=== PATIENT | female | born 1990 | race Caucasian/White ===

== ENCOUNTER 2016-07-29 18:32 | Emergency (ER) | payer OTHER ==
[2016-07-29] MEDS ORDERED: SODIUM CHLORIDE 0.9% 1,000 ML IV STA (19:05)
[2016-07-29] MEDS ORDERED: ACETAMINOPHEN IV (For NPO) 1,000 MG in SALINE 100 100ML.BAG IVPB STA (19:05)
--- NOTE | 2016-07-29 19:10 | ED ---
General Adult HPI - General Source: patient, RN notes reviewed Mode of arrival: ambulatory Limitations: no limitations <Eric James - Last Filed: 07/29/16 20:00> <Rishabh Mascorro - Last Filed: 07/29/16 21:26> - General Chief complaint: Recheck/Abnormal Lab/Rx Stated complaint: HYPERTENSION, JAYESH, PAIN RADIATING TO UPPER BACK Time Seen by Provider: 07/29/16 18:57 - History of Present Illness Initial comments: Patient 26-year-old female who presents emergency room today with a chief complaint feeling lightheaded dizzy. Does admit that she was at work earlier today felt like her heart was racing and did check her blood pressure. She states she 180s 106. States her heart rate was 120 bpm. States there is no history of hypertension. States she felt very hot and flushed earlier today. Patient does admit that she is currently on antibiotic of Bactrim covering for a pharyngitis and urinary tract infection. Patient denies any other complaints or symptoms at this time. Patient denies any recent fever, chills, shortness of breath, chest pain, back pain, abdominal pain, nausea or vomiting, numbness or tingling, dysuria or hematuria, constipation or diarrhea, headaches or visual changes, or any other complaints. (Eric James) - Related Data Home Medications Medication Instructions Recorded Confirmed Omeprazole 20 mg PO DAILY 07/29/16 07/29/16 Phentermine HCl [Adipex-P] 37.5 mg PO QAM 07/29/16 07/29/16 Sulfamethox-Tmp 800-160Mg [Bactrim 1 tab PO Q12HR 07/29/16 07/29/16 DS 800-160 mg] metFORMIN HCL [Glucophage] 850 mg PO DAILY 07/29/16 07/29/16 Previous Rx's Medication Instructions Recorded Azithromycin [Zithromax Z-pack] 250 mg PO DIRECTED #6 tab 07/29/16 Allergies Allergy/AdvReac Type Severity Reaction Status Date / Time Penicillins Allergy Rash/Hives Verified 07/29/16 19:13 Review of Systems ROS Other: All systems not noted in ROS Statement are negative. <Eric James - Last Filed: 07/29/16 20:00> ROS Other: All systems not noted in ROS Statement are negative. <Rishabh Mascorro - Last Filed: 07/29/16 21:26> ROS Statement: Those systems with pertinent positive or pertinent negative responses have been documented in the HPI. Past Medical History Past Medical History: No Reported History Additional Past Medical History / Comment(s): pcos History of Any Multi-Drug Resistant Organisms: None Reported Past Surgical History: Adenoidectomy Additional Past Surgical History / Comment(s): D&C Past Psychological History: No Psychological Hx Reported Smoking Status: Current every day smoker Past Alcohol Use History: None Reported Past Drug Use History: None Reported <Eric James - Last Filed: 07/29/16 20:00> General Exam Limitations: no limitations <Eric James - Last Filed: 07/29/16 20:00> <Rishabh Mascorro - Last Filed: 07/29/16 21:26> - General Exam Comments Initial Comments: General: The patient is awake and alert, in no distress, and does not appear acutely ill. Eye: Pupils are equal, round and reactive to light, extra-ocular movements are intact. No nystagmus. There is normal conjunctiva bilaterally. No signs of icterus. Ears, nose, mouth and throat: There are moist mucous membranes and no oral lesions. Neck: The neck is supple, there is no tenderness or JVD. No meningismal signs. Cardiovascular: There is a regular rate and rhythm. No murmur, rub or gallop is appreciated. Respiratory: Lungs are clear to auscultation, respirations are non-labored, breath sounds are equal. No wheezes, stridor, rales, or rhonchi. Gastrointestinal: Soft, non-distended, non-tender abdomen without masses or organomegaly noted. There is no rebound or guarding present. No CVA tenderness. Bowel sounds are unremarkable. Musculoskeletal: Normal ROM, no tenderness. Strength 5/5. Sensation intact. Pulses equal bilaterally 2+. Neurological: A&O x 3. CN II-XII intact, There are no obvious motor or sensory deficits. Coordination appears grossly intact. Speech is normal. Skin: Skin is warm and dry and no rashes or lesions are noted. Psychiatric: Cooperative, appropriate mood & affect, normal judgment. (Eric James) Medical Decision Making <Eric James - Last Filed: 07/29/16 20:00> - Lab Data Result diagrams: 07/29/16 19:48 07/29/16 19:48 <Rishabh Mascorro - Last Filed: 07/29/16 21:26> - Medical Decision Making Medical decision-making. Patient's white count 12 hemoglobin 13 hematocrit of 40, potassium 4.4, BUN 9 creatinine 1.0 with a BUN is 60. Glucose 77. Urine shows 4 whites. Negative negative. The patient's been on Bactrim for 8 days for urinary tract infection. Last week she was tested and she reports that she was negative rapid strep test is negative for strep though she did have a sore throat that time. Today she has a mild headache slight rash to her cheeks and arms. Her temp was up today 100. She did a blood pressure work was elevated also her heart rate was elevated. When she arrived here heart rate was 107 soon thereafter down to 92. Blood pressure initially 170/87 and then repeated at 147/82. Pulse ox was 100 initially and then 98 on room air afterwards. On physical examination patient throat was mildly red she had mild headache but no evidence of any meningeal irritation or meningismus. Mildly reddened skin on her face and arms. Lungs clear to auscultation heart no murmur. Patient had a chest x-ray. Reviewed by radiologist his impression was normal chest. As read by Dr. Pires Because of the patient's symptoms of elevated heart rate elevated respiratory rate when she arrived and fever. She had a CT with IV contrast angiogram to rule out PE. Radiologist reviewed the study and his impression was no evidence of pulmonary embolism on this exam. As read by Dr. Dave Discussed with the patient various scenarios otherwise she has a fever, why her heart rate was up blood pressure was up the way she fell. The plant this time is to place patient on a Zithromax and because she persists in having an upper respiratory type complaints with fever. She had a sore throat last week with a slight rash on her face and arms today. Patient advised to take tomorrow off increase her fluids use Tylenol or ibuprofen for pain and/or fever and follow- up with family physician. Dr. Mascorro (Rishabh Mascorro) - Lab Data Lab Results 07/29/16 07/29/16 07/29/16 Range/Units 19:48 19:48 19:48 WBC 12.1 H (3.8-10.6) k/uL RBC 4.48 (3.80-5.40) m/uL Hgb 13.1 (11.4-16.0) gm/dL Hct 40.2 (34.0-46.0) % MCV 89.8 (80.0-100.0) fL MCH 29.2 (25.0-35.0) pg MCHC 32.5 (31.0-37.0) g/dL RDW 14.5 (11.5-15.5) % Plt Count 378 (150-450) k/uL Neutrophils % 62 % Lymphocytes % 31 % Monocytes % 4 % Eosinophils % 1 % Basophils % 1 % Neutrophils # 7.5 (1.3-7.7) k/uL Lymphocytes # 3.7 (1.0-4.8) k/uL Monocytes # 0.5 (0-1.0) k/uL Eosinophils # 0.2 (0-0.7) k/uL Basophils # 0.1 (0-0.2) k/uL Sodium 141 (137-145) mmol/L Potassium 4.4 (3.5-5.1) mmol/L Chloride 103 (98-107) mmol/L Carbon Dioxide 23 (22-30) mmol/L Anion Gap 15 mmol/L BUN 9 (7-17) mg/dL Creatinine 1.00 (0.52-1.04) mg/dL Est GFR (MDRD) Af Amer >60 (>60 ml/min/1.73 sqM) Est GFR (MDRD) Non-Af >60 (>60 ml/min/1.73 sqM) Glucose 77 (74-99) mg/dL Calcium 9.4 (8.4-10.2) mg/dL Total Bilirubin 0.4 (0.2-1.3) mg/dL AST 21 (14-36) U/L ALT 38 (9-52) U/L Alkaline Phosphatase 65 (38-126) U/L Total Protein 7.4 (6.3-8.2) g/dL Albumin 4.1 (3.5-5.0) g/dL Urine Color Urine Appearance (Clear) Urine pH (5.0-8.0) Ur Specific [place] (1.001-1.035) Urine Protein (Negative) Urine Glucose (UA) (Negative) Urine Ketones (Negative) Urine Blood (Negative) Urine Nitrate (Negative) Urine Bilirubin (Negative) Urine Urobilinogen (<2.0) mg/dL Ur Leukocyte Esterase (Negative) Urine RBC (0-5) /hpf Urine WBC (0-5) /hpf Ur Squamous Epith Cells (0-4) /hpf Urine Bacteria (None) /hpf Urine Mucus (None) /hpf Urine HCG, Qual (Not Detectd) Influenza Type A RNA Not Detected (Not Detectd) Influenza Type B (PCR) Not Detected (Not Detectd) 07/29/16 07/29/16 Range/Units 19:48 19:48 WBC (3.8-10.6) k/uL RBC (3.80-5.40) m/uL Hgb (11.4-16.0) gm/dL Hct (34.0-46.0) % MCV (80.0-100.0) fL MCH (25.0-35.0) pg MCHC (31.0-37.0) g/dL RDW (11.5-15.5) % Plt Count (150-450) k/uL Neutrophils % % Lymphocytes % % Monocytes % % Eosinophils % % Basophils % % Neutrophils # (1.3-7.7) k/uL Lymphocytes # (1.0-4.8) k/uL Monocytes # (0-1.0) k/uL Eosinophils # (0-0.7) k/uL Basophils # (0-0.2) k/uL Sodium (137-145) mmol/L Potassium (3.5-5.1) mmol/L Chloride (98-107) mmol/L Carbon Dioxide (22-30) mmol/L Anion Gap mmol/L BUN (7-17) mg/dL Creatinine (0.52-1.04) mg/dL Est GFR (MDRD) Af Amer (>60 ml/min/1.73 sqM) Est GFR (MDRD) Non-Af (>60 ml/min/1.73 sqM) Glucose (74-99) mg/dL Calcium (8.4-10.2) mg/dL Total Bilirubin (0.2-1.3) mg/dL AST (14-36) U/L ALT (9-52) U/L Alkaline Phosphatase (38-126) U/L Total Protein (6.3-8.2) g/dL Albumin (3.5-5.0) g/dL Urine Color Yellow Urine Appearance Cloudy H (Clear) Urine pH 6.0 (5.0-8.0) Ur Specific [place] 1.022 (1.001-1.035) Urine Protein Trace H (Negative) Urine Glucose (UA) Negative (Negative) Urine Ketones Negative (Negative) Urine Blood Negative (Negative) Urine Nitrate Negative (Negative) Urine Bilirubin Negative (Negative) Urine Urobilinogen <2.0 (<2.0) mg/dL Ur Leukocyte Esterase Small H (Negative) Urine RBC 1 (0-5) /hpf Urine WBC 4 (0-5) /hpf Ur Squamous Epith Cells 8 H (0-4) /hpf Urine Bacteria Rare H (None) /hpf Urine Mucus Rare H (None) /hpf Urine HCG, Qual Not Detected (Not Detectd) Influenza Type A RNA (Not Detectd) Influenza Type B (PCR) (Not Detectd) Disposition <Eric James - Last Filed: 07/29/16 20:00> Time of Disposition: 21:26 <Rishabh Mascorro - Last Filed: 07/29/16 21:26> Clinical Impression: Upper respiratory tract infection Disposition: HOME SELF-CARE Condition: Stable Instructions: Upper Respiratory Infection (ED) Additional Instructions: Increase fluids use Tylenol for fever. Start incomplete a azithromycin. Follow -up with family physician. Kitchen blood pressure rechecked several times this week. Tomorrow Prescriptions: Azithromycin [Zithromax Z-pack] 250 mg PO DIRECTED #6 tab
--- NOTE | 2016-07-29 20:01 | XR ---
EXAMINATION TYPE: XR chest 2V DATE OF EXAM ORDERED: 07/29/2016 7:56 PM HISTORY: cough. 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 FINDINGS: The lungs are clear. Pleural spaces are clear. Heart size is normal. IMPRESSION: NORMAL CHEST.
[2016-07-29 20:03] LABS: Basophils # (A) 0.1 k/uL (0-0.2); Basophils % (A) 1 %; CHCM 32.5; Eosinophils # (A) 0.2 k/uL (0-0.7); Eosinophils % (A) 1 %; HCT 40.2 % (34.0-46.0); HDW 2.75; HGB 13.1 gm/dL (11.4-16.0); Luc # (Auto) 0.15; Luc % (Auto) 1; Lymphocytes # (A) 3.7 k/uL (1.0-4.8); Lymphocytes % (A) 31 %; MCH 29.2 pg (25.0-35.0); MCHC 32.5 g/dL (31.0-37.0); MCV 89.8 fL (80.0-100.0); Mean Platelet Volume 7.2; Monocytes # (A) 0.5 k/uL (0-1.0); Monocytes % (A) 4 %; Neutrophils # (A) 7.5 k/uL (1.3-7.7); Neutrophils % (A) 62 %; RBC 4.48 m/uL (3.80-5.40); RDW 14.5 % (11.5-15.5); WBC 12.1 k/uL (3.8-10.6); WBC (Perox) 12.37
[2016-07-29 20:05] LABS: Appearance,Urine Cloudy (Clear); Bacteria,Urine Rare /hpf; Bilirubin,Urine Negative (Negative); Glucose,Urine (UA) Negative (Negative); Ketones,Urine Negative (Negative); Leukocyte Esterase,Urine Small (Negative); Mucus,Urine Rare /hpf; Nitrite,Urine Negative (Negative); Particle Count 3066; Protein,Urine Trace (Negative); RBC,Urine 1 /hpf (0-5); Specific Gravity,Urine 1.022 (1.001-1.035); Squamous Epithelial Cell,Urine 8 /hpf (0-4); UA Billing (MACRO vs. MICRO) MICRO; Urobilinogen,Urine <2.0 mg/dL (<2.0); WBC,Urine 4 /hpf (0-5)
[2016-07-29] MEDS ORDERED: RX INFO: IV CONTRAST WAS GIVEN 1 EACH MISC MISCELLANE PRN (20:16)
[2016-07-29 20:22] LABS: ALT 38 U/L (9-52); AST 21 U/L (14-36); Alkaline Phosphatase 65 U/L (38-126); Anion Gap 15 mmol/L; Blood Urea Nitrogen 9 mg/dL (7-17); Calcium 9.4 mg/dL (8.4-10.2); Carbon Dioxide 23 mmol/L (22-30); Chloride 103 mmol/L (98-107); Glucose 77 mg/dL (74-99); Non-African American GFR(MDRD) >60 (>60 ml/min/1.73 sqM); Potassium 4.4 mmol/L (3.5-5.1); Sodium 141 mmol/L (137-145); Total Bilirubin 0.4 mg/dL (0.2-1.3); Total Protein 7.4 g/dL (6.3-8.2)
--- NOTE | 2016-07-29 21:02 | CT ---
EXAMINATION TYPE: CT angio chest DATE OF EXAM: 07/29/2016 8:53 PM COMPARISON: NONE HISTORY: Tachycardia and hypertension with difficulty breathing. CT DLP: 506.60 mGycm Automated exposure control for dose reduction was used. CONTRAST: CTA scan of the thorax is performed with IV Contrast, patient injected with 65 mL of Omnipaque 350, p ulmonary embolism protocol. . FINDINGS: The lungs are clear. There is no significant axillary, internal mammary, mediastinal or hilar adenopathy. There is no pleu ral or pericardial fluid. There is no evidence of pulmonary embolus. The aorta is normal in caliber without evidence of dissect ion. Visualized portions of the upper abdomen are unremarkable.. IMPRESSION: THIS EXAMINATION IS NEGATIVE FOR PULMONARY EMBOLUS.
[2016-07-29] MEDS ORDERED: AZITHROMYCIN 250 MG TAB PO STA (21:24)
[2016-07-29 21:41] VITALS: BP 149/70; PULSE 71; RESP 16; TEMP 98.5
== END 2016-07-29 21:40 | disposition home or self-care (01) ==
LOC: EC 18:32
DX: J06.9 Acute upper respiratory infection, unspecified (principal); R51 Headache; R21 Rash and other nonspecific skin eruption; I10 Essential (primary) hypertension; Z79.899 Other long term (current) drug therapy; Z79.84 Long term (current) use of oral hypoglycemic drugs; F17.200 Nicotine dependence, unspecified, uncomplicated; Z88.0 Allergy status to penicillin
CPT/HCPCS: 99284; 36415; 93005; 80053; 85025; 81001; 81025; 87502; 71020; 71275; 96374; 96361; Q9967; J0131

== ENCOUNTER → 2018-06-23 | Outpatient (CLI) | payer OTHER ==
--- NOTE | 2018-06-23 14:40 | FL ---
EXAMINATION TYPE: FL hysterosalpingography DATE OF EXAM: 06/23/2018 HISTORY: Infertility. Informed consent was obtained and all the patient's questions were answered. Preliminary film of the pelvis reveals no distinct abnormality. A speculum was introduced and the external cervical os was l ocalize. The external cervical os was cleansed and a Betadine solution on 3 occasions. Hysterosalpi ngography catheter was introduced into the uterus and balloon insufflation device deployed. Approxim ately 12 cc of nonionic contrast was injected in a retrograde manner. The uterus has a normal size shape and appearance. No persistent uterine filling defects are seen. Both fallopian tubes fill with contrast normally. There is spill of contrast into the peritoneal cav ity bilaterally left greater than right. IMPRESSION: Normal hysterosalpingogram with bilateral spill of contrast into the peritoneal cavity.
== END | disposition home or self-care (01) ==
LOC: RADFLWHC 13:26
PROVIDERS: ATTEND Obstetrics & Gynecology
DX: E28.2 Polycystic ovarian syndrome (principal)
CPT/HCPCS: 58340; 74740; Q9967

== ENCOUNTER → 2018-07-22 | Outpatient (CLI) | payer OTHER ==
[2018-07-22 15:03] LABS: HCT 44.8 % (34.0-46.0); HGB 14.3 gm/dL (11.4-16.0); MCH 32.1 pg (25.0-35.0); MCHC 31.9 g/dL (31.0-37.0); MCV 100.8 fL (80.0-100.0); Platelet Count 315 k/uL (150-450); RBC 4.44 m/uL (3.80-5.40); RDW 12.7 % (11.5-15.5); WBC 8.8 k/uL (3.8-10.6)
[2018-07-22 16:20] LABS: Erythrocyte Sedimentation Rate 7 mm/hr (0-20)
[2018-07-22 19:48] LABS: C Reactive Protein 0.5 mg/dL (0.0-0.8)
[2018-07-22 19:49] LABS: Albumin 4.6 g/dL (3.80-4.90); Albumin/Globulin Ratio 2.3 (1.20-2.10); Anion Gap 8.4 mmol/L (4.00-12.00); Calcium 9.3 mg/dL (8.7-10.3); Carbon Dioxide 29.6 mmol/L (21.6-31.8); Potassium 4.2 mmol/L (3.5-5.5); Total Bilirubin 0.2 mg/dL (0.3-1.2); Total Protein 6.6 g/dL (6.2-8.2)
== END | disposition home or self-care (01) ==
LOC: LABWHC1 14:36
PROVIDERS: ATTEND Orthopaedic Surgery
DX: M86.9 Osteomyelitis, unspecified (principal)
CPT/HCPCS: 36415; 80053; 85027; 85652; 86140

== ENCOUNTER 2018-07-25 05:32 | Emergency (ER) | payer OTHER ==
[2018-07-25 05:38] VITALS: RESP 18
[2018-07-25] MEDS ORDERED: KETOROLAC 30 MG/ML 1 ML VIAL IVP STA (06:00)
--- NOTE | 2018-07-25 06:00 | ED ---
General Adult HPI - General Source: patient Mode of arrival: ambulatory Limitations: no limitations <Dom Munguia - Last Filed: 07/25/18 05:59> <Gary Fisher - Last Filed: 07/25/18 08:31> - General Chief complaint: Abdominal Pain Stated complaint: constipation,abd pain - Related Data Home Medications Medication Instructions Recorded Confirmed metFORMIN HCL [Glucophage] 850 mg PO DAILY 07/29/16 07/25/18 Allergies Allergy/AdvReac Type Severity Reaction Status Date / Time Penicillins Allergy Rash/Hives Verified 07/25/18 06:53 Review of Systems ROS Other: All systems not noted in ROS Statement are negative. <Dom Munguia - Last Filed: 07/25/18 05:59> ROS Other: All systems not noted in ROS Statement are negative. <Gary Fisher - Last Filed: 07/25/18 08:31> ROS Statement: Those systems with pertinent positive or pertinent negative responses have been documented in the HPI. Past Medical History Past Medical History: No Reported History Additional Past Medical History / Comment(s): pcos History of Any Multi-Drug Resistant Organisms: None Reported Past Surgical History: Adenoidectomy Additional Past Surgical History / Comment(s): D&C Past Psychological History: No Psychological Hx Reported Smoking Status: Former smoker Past Alcohol Use History: None Reported Past Drug Use History: None Reported <Dom Munguia - Last Filed: 07/25/18 05:59> General Exam Limitations: no limitations <Dom Munguia - Last Filed: 07/25/18 05:59> Vital Signs 07/25/18 07/25/18 05:35 08:18 Temperature 98.1 F 97.9 F Pulse Rate 88 71 Respiratory 18 18 Rate Blood Pressure 163/99 150/99 O2 Sat by Pulse 99 98 Oximetry Medical Decision Making <Dom Munguia - Last Filed: 07/25/18 05:59> <Gary Fisher - Last Filed: 07/25/18 08:31> - Medical Decision Making Dictation was produced using [employer] dictation software. please excuse any grammatical, word or spelling errors. Chief Complaint: 28-year-old female past medical history of PCOS presents with pelvic pain History of Present Illness: 28-year-old female. She hasn't had a bowel movement in 2 days. Patient states that she is having constipation. She states that her constipation so bad that she is beginning to have pelvic symptoms. She tried taking oral laxatives with no help. Denies any constitutional symptoms. She states that she does have abdominal tenderness to the left upper and left lower quadrant. There is any nausea or vomiting. She states that she does have a bowel movement but it hurts. Denies any rectal bleeding. The ROS documented in this emergency department record has been reviewed and confirmed by me. Those systems with pertinent positive or negative responses have been documented in the HPI. All other systems are other negative and/or noncontributory. PHYSICAL EXAM: General Impression: Alert and oriented x3, not in acute distress HEENT: Normocephalic atraumatic, extra-ocular movements intact, pupils equal and reactive to light bilaterally, mucous membranes moist. Cardiovascular: Heart regular rate and rhythm, S1&S2 audible, no murmurs, rubs or gallops Chest: Lungs clear to auscultation bilaterally, no rhonchi, no wheeze, no rales Abdomen: Abdominal tenderness to the left upper and left lower quadrant Musculoskeletal: Pulses present and equal in all extremities, no peripheral edema Motor: Power 5/5 bilaterally, no focal deficits noted Neurological: CN II-XII grossly intact, no focal motor or sensory deficits noted Skin: Intact with no visualized rashes Psych: Normal affect and mood ED course: 28-year-old female presents with abdominal pain, rectal pain and constipation. Signs upon arrival are within acceptable limits. (Dom Munguia) Patient had an enema and had a large bowel movement. Patient states she felt considerably better. I will back into reevaluate her examined her abdomen she was nontender. Patient be discharged home. (Gary Fisher) - Lab Data Lab Results 07/25/18 Range/Units 05:50 Urine HCG, Qual Not Detected (Not Detectd) Disposition <Dom Munguia - Last Filed: 07/25/18 05:59> Is patient prescribed a controlled substance at d/c from ED?: No Time of Disposition: 08:31 <Gary Fisher - Last Filed: 07/25/18 08:31> Clinical Impression: Constipation Disposition: HOME SELF-CARE Condition: Good Instructions: High Fiber Diet (ED), Constipation (ED) Referrals: Selma Curtis MD [Primary Care Provider] - 1-2 days
--- NOTE | 2018-07-25 06:22 | XR ---
EXAMINATION TYPE: XR abdomen 1V DATE OF EXAM: 07/25/2018 COMPARISON: 05/04/2013 HISTORY: Constipation TECHNIQUE: 2 views upright. FINDINGS: There is no sign of intestinal obstruction or pneumoperitoneum. Fecal pattern is normal. Anabel ng bases are clear. There are no pathologic calcifications. IMPRESSION: Nonacute abdomen. No change.
[2018-07-25] MEDS ORDERED: MORPHINE SULFATE 2 MG/ML SYRINGE IVP PRN (06:50)
[2018-07-25] MEDS ORDERED: NA PHOS,M-B/NA PHOS,DI-BA 133 ML ENEMA RECTAL STA (07:16)
[2018-07-25 08:20] VITALS: BP 150/99; PULSE 71; TEMP 97.9
== END 2018-07-25 08:35 | disposition home or self-care (01) ==
LOC: EC 05:32
DX: K59.00 Constipation, unspecified (principal); Z87.891 Personal history of nicotine dependence; Z87.42 Personal history of other diseases of the female genital tract; Z79.84 Long term (current) use of oral hypoglycemic drugs; Z88.0 Allergy status to penicillin
CPT/HCPCS: 81025; 74018; 99284; 96374; 96375; J1885; J2270

== ENCOUNTER → 2020-09-10 | Outpatient (CLI) | payer OTHER ==
--- NOTE | 2020-09-10 16:06 | MR ---
MRI CERVICAL SPINE: CLINICAL HISTORY: M 54.12, M 54.5 TECHNIQUE: Multiplanar, multisequence imaging of the cervical spine and thoracic spine is performed w ithout IV contrast, patient refused IV contrast. COMPARISON: None FINDINGS: Sagittal images of the cervical spine show the craniocervical junction to appear within nor mal limits. The cervical and upper thoracic spinal cord is normal in course, caliber, and signal. V ertebral alignment is anatomic. The vertebral body and intravertebral disk heights are remarkable fo r some loss of disc signal C4-5 and C5-6, there is no significant spinal stenosis, no foraminal encro achment. The bone marrow signal intensity is within normal limits. Small posterior disc bulge C7-T1 is eccentric towards the right causing minimal anterolateral mass ef fect on the thecal sac, C6-7 shows a minimal central posterior disc bulge. C5-6 shows a central posterior disc protrusion causing anterior mass effect on the thecal sac, C4-5 s hows a minimal posterior disc bulge causing slight anterior mass effect on the thecal sac. IMPRESSION: Mild degenerative disc disease. Thoracic spine MRI There is a spinal curvature present. There is no significant spinal stenosis. There is multilevel mil d facet arthropathy especially at the lower thoracic spine. No evident foraminal encroachment. Minima l multilevel disc bulges are present, T6-7 shows slight anterior mass effect on the thecal sac. T4-5 also shows slight anterior mass effect on the thecal sac due to posterior disc bulge. T8-9 also shows a bilobed posterior disc bulge causes slight anterior mass effect on the thecal sac. T11-12 shows a right paracentral disc herniation causing anterolateral mass effect on the thecal sac. IMPRESSION: Degenerative disc disease, disc herniation is lateral at T11-12 to the right midline.
== END ==
LOC: RADMRIMAIN 09-07 11:34
PROVIDERS: ATTEND Nurse Practitioner Adult Health
DX: M51.24 Other intervertebral disc displacement, thoracic region (principal); M51.34 Other intervertebral disc degeneration, thoracic region; M50.30 Other cervical disc degeneration, unspecified cervical region
CPT/HCPCS: 72141; 72146

== ENCOUNTER → 2021-02-28 | Outpatient (CLI) | payer OTHER ==
--- NOTE | 2021-02-28 13:13 | US ---
EXAMINATION TYPE: US abdomen complete DATE OF EXAM: 02/28/2021 COMPARISON: NONE CLINICAL HISTORY: K21.9. GERD, abdominal pain for 1 month, nausea EXAM MEASUREMENTS: Liver Length: 20.6 cm Gallbladder Wall: 0.3 cm CBD: 0.4 cm Spleen: 11.2 cm Right Kidney: 11.5 x 4.4 x 4.3 cm Left Kidney: 11.0 x 5.0 x 5.6 cm *technical limitations due to patient's body habitus and overlying bowel content Pancreas: Obscured by bowel gas, visualized portions are within normal limits Liver: enlarged, attenuating Gallbladder: multiple stones Evidence for sonographic Prater's sign: no CBD: appears wnl as visualized Spleen: wnl Right Kidney: no evidence of hydronephrosis Left Kidney: no evidence of hydronephrosis Upper IVC: wnl Abd Aorta: bifurcation obscured, visualized portions appear wnl The liver is poorly penetrated by the ultrasound and is enlarged. The intrahepatic portion of the IV C and proximal abdominal aorta are within normal limits. Common bile duct is unremarkable. The visu alized portions of the pancreas are homogenous. The spleen is unremarkable. Kidneys are symmetric a nd free of hydronephrosis. No renal lesions are seen. IMPRESSION: Correlate for hepatic steatosis, there is hepatomegaly. Cholelithiasis.
== END | disposition home or self-care (01) ==
LOC: RADUSWWP 10:36
PROVIDERS: ATTEND Internal Medicine
DX: R16.0 Hepatomegaly, not elsewhere classified (principal); K80.20 Calculus of gallbladder without cholecystitis without obstruction
CPT/HCPCS: 76700

== ENCOUNTER → 2021-05-15 | Outpatient (CLI) | payer OTHER ==
--- NOTE | 2021-05-15 17:49 | ECHOF ---
Referral Reason:I34.1 mitral valve prolapse MEASUREMENTS -------- HEIGHT: 177.8 cm WEIGHT: 127.0 kg BP: IVSd: 1.3 cm (0.6 - 1.1) LVIDd: 5.1 cm (3.9 - 5.3) LVPWd: 1.1 cm (0.6 - 1.1) IVSs: 1.9 cm LVIDs: 3.6 cm LVPWs: 1.2 cm LAESV Index (A-L): 20.23 ml/m Ao Diam: 3.0 cm (2.0 - 3.7) AV Cusp: 2.0 cm (1.5 - 2.6) LA Diam: 3.1 cm (2.7 - 3.8) MV EXCURSION: 21.518 mm (> 18.000) MV EF SLOPE: 107 mm/s (70 - 150) EPSS: 1.1 cm MV E Kirk: 1.00 m/s MV DecT: 200 ms MV A Kirk: 0.82 m/s MV E/A Ratio: 1.23 RAP: 5.00 mmHg RVSP: 12.42 mmHg FINDINGS -------- Sinus rhythm. This was a technically adequate study. The left ventricular size is normal. There is mild concentric left ventricular hypertrophy. Overa ll left ventricular systolic function is normal with, an EF between 55 - 60 %. The diastolic fillin g pattern is normal for the age of the patient 11.30. The right ventricle is normal in size. Normal LA size by volume 22+/-6 ml/m2. The right atrial size is normal. The aortic valve was not well visualized. The mitral valve is normal. There is trace mitral regurgitation. The tricuspid valve appears structurally normal. Trace tricuspid regurgitation present. Right mehrdad tricular systolic pressure is normal at < 35 mmHg. The pulmonic valve was not well visualized. There is no pulmonic regurgitation present. The aortic root size is normal. IVC Not well visulized. There is no pericardial effusion. CONCLUSIONS -------- 1. There is mild concentric left ventricular hypertrophy. 2. Overall left ventricular systolic function is normal with, an EF between 55 - 60 %. 3. Normal LA size by volume 22+/-6 ml/m2. 4. The aortic valve was not well visualized. 5. There is trace mitral regurgitation. 6. Trace tricuspid regurgitation present. 7. There is no pericardial effusion. LEGAL PARAPROFESSIONAL: Manda William RDCS
== END | disposition home or self-care (01) ==
LOC: RADECHMAIN 10:41
PROVIDERS: ATTEND Internal Medicine
DX: I08.1 Rheumatic disorders of both mitral and tricuspid valves (principal)
CPT/HCPCS: 93306

== ENCOUNTER 2021-11-06 16:48 | Emergency (ER) | payer OTHER ==
[2021-11-06 17:12] VITALS: BP 132/93; PULSE 87; RESP 16; TEMP 98.1
--- NOTE | 2021-11-06 17:42 | XR ---
EXAMINATION TYPE: XR foot complete LT DATE OF EXAM: 11/06/2021 5:22 PM INDICATION: Patient age:Female; 31 years old; Reason for study: pain. COMPARISON: None TECHNIQUE: The left foot was examined in the AP, oblique, and lateral projections. FINDINGS: No evidence of any acute osseous pathology. Mild soft tissue edema is present. Joints are preserved. Accessory enthesophyte formation of the Achilles tendon at its insertion ossicles present near the c uboid. IMPRESSION: 1. No evidence of acute fracture. 2. Soft tissue swelling around the foot.
--- NOTE | 2021-11-06 19:02 | ED ---
Lower Extremity Injury HPI - General Chief Complaint: Extremity Injury, Lower Stated Complaint: [facility] foot injury Time Seen by Provider: 11/06/21 18:52 Source: patient Mode of arrival: ambulatory Limitations: no limitations - History of Present Illness Initial Comments: This is a pleasant 31-year-old female presents complaining of an injury to her left foot. She was moving a piece of furniture at work when part of the furniture was dropped onto the dorsum of her left foot. She states this was a metallic portion. Patient complaining of sharp and burning pain to the dorsum of the foot which assessment by palpation and walking. Patient able to walk. She denies any distal paresthesias. No distal or proximal injuries. No headache, no fever or chills, no changes in vision or hearing, no sore throat or difficulty with speech, no neck pain, no chest pain or shortness of breath, no abdominal pain, no nausea or vomiting, no changes in urination or bowel movements, no numbness or tingling,, no skin rashes or lesions. MD Complaint: foot injury - Related Data Home Medications Medication Instructions Recorded Confirmed metFORMIN HCL [Glucophage] 500 mg PO TID 07/29/16 09/26/20 Multivitamins, Thera [Multivitamin 1 tab PO DAILY 09/26/20 09/26/20 (formulary)] Pantoprazole [Protonix] 40 mg PO BID 09/26/20 09/26/20 Venlafaxine HCl [Effexor] 75 mg PO DAILY 09/26/20 09/26/20 Allergies Allergy/AdvReac Type Severity Reaction Status Date / Time Penicillins Allergy Rash/Hives Verified 11/06/21 17:12 Review of Systems ROS Statement: Those systems with pertinent positive or pertinent negative responses have been documented in the HPI. ROS Other: All systems not noted in ROS Statement are negative. Past Medical History Past Medical History: No Reported History Additional Past Medical History / Comment(s): pcos History of Any Multi-Drug Resistant Organisms: None Reported Past Surgical History: Adenoidectomy Additional Past Surgical History / Comment(s): D&C Past Psychological History: No Psychological Hx Reported Smoking Status: Never smoker Past Alcohol Use History: None Reported Past Drug Use History: None Reported General Exam Limitations: no limitations General appearance: alert, in no apparent distress Head exam: Present: atraumatic, normocephalic, normal inspection Eye exam: Present: normal appearance, PERRL, EOMI. Absent: scleral icterus, conjunctival injection, periorbital swelling ENT exam: Present: normal exam, mucous membranes moist Neck exam: Present: normal inspection. Absent: tenderness, meningismus, lymphadenopathy Respiratory exam: Present: normal lung sounds bilaterally. Absent: respiratory distress, wheezes, rales, rhonchi, stridor Cardiovascular Exam: Present: regular rate, normal rhythm, normal heart sounds. Absent: systolic murmur, diastolic murmur, rubs, gallop, clicks GI/Abdominal exam: Present: soft, normal bowel sounds. Absent: distended, tenderness, guarding, rebound, rigid Extremities exam: Present: normal inspection, full ROM, tenderness (Tenderness of dorsum of left foot. No break in skin integrity. Minimal ecchymosis. Pulses are intact. Full range of motion with regards to phalanges, foot, and ankle with pain.), normal capillary refill. Absent: pedal edema, joint swelling, calf tenderness Back exam: Present: normal inspection Neurological exam: Present: alert, oriented X3, CN II-XII intact Psychiatric exam: Present: normal affect, normal mood Skin exam: Present: warm, dry, intact, normal color. Absent: rash Course Vital Signs 11/06/21 17:10 Temperature 98.1 F Pulse Rate 87 Respiratory 16 Rate Blood Pressure 132/93 O2 Sat by Pulse 94 L Oximetry Medical Decision Making - Medical Decision Making Patient be treated conservatively for for contusion. Patient has ibuprofen at home. Rice therapy discussed. Seb wrap applied. Neurovascular status intact. Plan: X-rays read as negative by radiology. I did review these films myself. No acute pathology. Patient was told to return to the ER for any signs or symptoms worsen. Told to return immediately if any other problems arise. All questions answered. Treatment plan discussed. Patient in agreement Every effort has been made to ensure accuracy of this dictation. However, due t o the limitations of electronic medical records and dictation devices, errors in charting still occur. - Radiology Data Radiology results: report reviewed, image reviewed Disposition Clinical Impression: Contusion of left foot, initial encounter Disposition: HOME SELF-CARE Condition: Good Instructions (If sedation given, give patient instructions): Foot Contusion (ED) Additional Instructions: Follow-up with the [facility] on Wednesday. Follow-up with your regular physician as directed. Return to the ER immediately if any symptoms worsen, new symptoms arise, or any other problems develop. Use [id number] ibuprofen as discussed. Is patient prescribed a controlled substance at d/c from ED?: No Referrals: Lex Elmore MD [Primary Care Provider] - 1-2 days (As needed) Time of Disposition: 19:01
== END 2021-11-06 19:08 | disposition home or self-care (01) ==
LOC: EC 16:48
DX: S90.32XA Contusion of left foot, initial encounter (principal); Z88.0 Allergy status to penicillin; W20.8XXA Other cause of strike by thrown, projected or falling object, initial encounter; Y99.0 Civilian activity done for income or pay
CPT/HCPCS: 99283

== ENCOUNTER → 2021-11-07 | Outpatient (CLI) | payer OTHER ==
--- NOTE | 2021-11-07 12:56 | CT ---
EXAMINATION TYPE: CT foot LT wo con DATE OF EXAM: 11/07/2021 COMPARISON: 11/06/2021 left foot x-ray HISTORY: CONTUSION TO TOP OF FOOT CT DLP: 263.2 mGycm Automated exposure control for dose reduction was used. Contrast: None Technique: Axial images 3 mm thick sections. Reconstructed images in the coronal and sagittal plane. Bone windows are reviewed. Soft tissue windows are reviewed. FINDINGS: No acute fractures are identified. The joint spaces appear preserved. Alignment appears preserved. Me tatarsals appear intact. Muscular density appears normal. There is rounding of the Achilles tendon. Partial tear should be considered. Old injury would be with in the differential. Correlate with history. MRI of the ankle with attention to Achilles tendon is re commended for additional workup. Note is made of old screw holes within the posterior calcaneus IMPRESSION: 1. ROUNDING AND ENLARGEMENT OF THE ACHILLES TENDON. ADJACENT INFLAMMATORY CHANGES NOT IDENTIFIED. REC OMMEND MRI OF THE ANKLE WITH ATTENTION OF THE ACHILLES TENDON TO EVALUATE FOR PARTIAL TEAR.
== END | disposition home or self-care (01) ==
LOC: RADCTMAIN 12:06
PROVIDERS: ATTEND Emergency Medicine
DX: M67.874 Other specified disorders of tendon, left ankle and foot (principal)

== ENCOUNTER 2022-02-02 06:29 | Day surgery (SDC) | payer OTHER ==
[2022-01-30 08:59] VITALS: BMI 35.9
[~2022-02-02 06:29] MED LIST: ACETAMINOPHEN TAB 500 MG TAB PO PRN; HEPARIN SODIUM,PORCINE/PF 5,000 UNIT/0.5 ML SYRINGE SQ PRN
[2022-02-02] MEDS ORDERED: ONDANSETRON 4 MG/2 ML VIAL IVP ONE ×2 (06:48→10:11)
[2022-02-02] MEDS ORDERED: LACTATED RINGERS 1,000 ML IV SCH (06:48)
[2022-02-02] MEDS ORDERED: HYDROmorphone 0.5 MG/0.5 ML SYRINGE IVP PRN (06:48)
[2022-02-02] MEDS ORDERED: SCOPOLAMINE 1 MG/72 HR PATCH TRANSDERM ONE (06:48)
[2022-02-02] MEDS ORDERED: DEXAMETHASONE SOD PHOSPHATE 4 MG/ML 1 ML VIAL IV ONE (06:48)
[2022-02-02] MEDS ORDERED: LIDOCAINE 1% (10MG/ML) FOR IV START INTRADERMA PRN (06:48)
[2022-02-02 07:18] LABS: Glucose,Whole Blood 82 mg/dL (70-110)
--- NOTE | 2022-02-02 07:18 | P.GSHP ---
History of Present Illness H&P Date: 02/02/22 Chief Complaint: Chronic cholecystitis 31-year-old female seen in the office last June. Patient having complaints of right upper quadrant pain for the last 1-1/2 years or so. Symptoms typically once per week. Pain is nonradiating. Feels like a throbbing sensation. U ltrasound shows multiple stones. She does have some intermittent loose stools. No change in the color of her skin urine or stool. Some nausea but no vomiting. Strong family history of colon bladder disease. Patient was previously scheduled for cholecystectomy in July. This was rescheduled. Past Medical History Past Medical History: GERD/Reflux Additional Past Medical History / Comment(s): freq diarrhea and intermittent abd pain, pcos-takes metformin History of Any Multi-Drug Resistant Organisms: None Reported Past Surgical History: Adenoidectomy, Section Additional Past Surgical History / Comment(s): D&C,achilles tendon repair Past Anesthesia/Blood Transfusion Reactions: No Reported Reaction, Family History of Problems w/ Anesthesia Additional Past Anesthesia/Blood Transfusion Reaction / Comment(s): mom and sister have PONV Smoking Status: Never smoker - Past Family History Mother Family Medical History: No Reported History Medications and Allergies Home Medications Medication Instructions Recorded Confirmed Type metFORMIN HCL [Glucophage] 500 mg PO TID 07/29/16 02/02/22 History Colestipol HCl 1 gm PO DAILY 01/30/22 02/02/22 History Liraglutide [Saxenda] 0.6 mg SQ DAILY 01/30/22 02/02/22 History Omeprazole [PriLOSEC] 20 mg PO AC-BRKFST 01/30/22 02/02/22 History Vit No.179/Iron/Folic 1 each PO DAILY 01/30/22 02/02/22 History [ Tablet] Allergies Allergy/AdvReac Type Severity Reaction Status Date / Time Penicillins Allergy Rash/Hives Verified 02/02/22 06:58 as a child Surgical - Exam Vital Signs Temp Pulse Resp BP Pulse Ox 97.7 F 84 16 130/80 96 02/02/22 07:02 02/02/22 07:02 02/02/22 07:02 02/02/22 07:02 02/02/22 07:02 Physical exam: General: Well-developed, well-nourished HEENT: Normocephalic, sclerae nonicteric Abdomen: Nontender, nondistended Extremities: No edema Neuro: Alert and oriented Assessment and Plan (1) Chronic cholecystitis Narrative/Plan: 31-year-old female with chronic cholecystitis. We'll proceed with laparoscopic, possible open cholecystectomy at this time. Risks of bleeding, infection, bile leak, bile duct injury, retained common bile duct stone, trocar injury, conversion to an open procedure, hernia, anesthesia related complications were reviewed. The patient understands and wishes to proceed. Current Visit: Yes Status: Acute Code(s): K81.1 - CHRONIC CHOLECYSTITIS SNOMED Code(s): 15594212
[2022-02-02] MEDS ORDERED: BUPIVACAIN-EPI 0.25%-1:200,000 30 ML VIAL SQ ONE ×2 (07:29→07:53)
[2022-02-02] MEDS ORDERED: GLYCOPYRROLATE 0.2 MG/ML 2 ML VIAL ONE (07:36)
[2022-02-02] MEDS ORDERED: fentaNYL (PF) 50 MCG/ML 2 ML AMP ONE (07:36)
[2022-02-02] MEDS ORDERED: LIDOCAINE 2% INJ 20 MG/ML (2 ML VIAL) ONE (07:36)
[2022-02-02] MEDS ORDERED: KETOROLAC 15 MG/ML 1 ML VIAL ONE (07:36)
[2022-02-02] MEDS ORDERED: NEOSTIGMINE 1 MG/ML 10 ML VIAL ONE (07:36)
[2022-02-02] MEDS ORDERED: PROPOFOL 10 MG/ML 20 ML VIAL IV ONE (07:36)
[2022-02-02] MEDS ORDERED: ROCURONIUM 10 MG/ML (5 ML VIAL) IV ONE (07:36)
[2022-02-02] MEDS ORDERED: MIDAZOLAM 2 MG/2 ML VIAL ONE (07:36)
--- NOTE | 2022-02-02 08:48 | P.OP ---
Date of Procedure: 02/02/22 Procedure(s) Performed: PREOPERATIVE DIAGNOSIS: Chronic cholecystitis POSTOPERATIVE DIAGNOSIS: Same PROCEDURE: Laparoscopic cholecystectomy SURGEON: Enma EBL: Minimal see anesthesia record ANESTHESIA: Gen. COMPLICATIONS: None OPERATIVE PROCEDURE: The patient was brought and placed on the operating room table in the supine position. The patient was placed under general anesthesia at that time. The abdomen was prepped and draped in the usual sterile fashion. A small curvilinear supraumbilical incision was made. The fascia was grasped with the Pete forceps. The fascia was retracted anteriorly. The Veress needle was advanced into the peritoneal cavity. The saline drop test was normal. Insufflation took place up to 15 mmHg. A 5 mm optical trocar was advanced and the peritoneal cavity. 2 additional 5 mm trochars were placed in the right upper quadrant under direct visualization. A 12 mm trocar was advanced into the epigastric incision site. The gallbladder was retracted superiorly and laterally. The peritoneum overlying the infundibulum was bluntly dissected. The patient's cystic duct was visualized. The junction between the cystic duct common and hepatic duct was identified. The critical view of safety was achieved after blunt dissection. The cystic duct was then divided after placement of 3 12 mm clips on the patient's side and one on the specimen side. The cystic artery was identified and clipped as well. A small vessel was seen along the gallbladder fossa and clipped as well. The gallbladder was then removed from the liver bed using electrocautery. The gallbladder was then removed from the epigastric trocar site with an Endo Catch bag. I did place the camera through the lateral 5 mm trocar site to inspect the umbilicus. Patient was concerned about a possible umbilical hernia. This could not be palpated on clinical exam. Apparently a recent CAT scan suggested a possible hernia there. From our view from the side looking at the umbilical region I was not able to see any obvious fascial defect or peritoneal defect. The camera was then placed back in the umbilical trocar site. The gallbladder fossa was irrigated with saline. There was no evidence of any bleeding or biliary drainage seen. The fascia at the 12 millimeter site was closed using a Genaro-Sadiq 0 Vicryl stitch. The trochars were then removed. The skin at all 4 sites was closed using a 4-0 Monocryl stitch. Skin glue was utilized on the incision sites. At the end of this procedure the sponge and needle counts were correct. DISPOSITION: Stable to the recovery room
[2022-02-02] MEDS ORDERED: ACETAMINOPHEN TAB 325 MG TAB PO SCH (09:00)
[2022-02-02 09:02] VITALS: TEMP 97.5
[2022-02-02 10:03] VITALS: RESP 16
[2022-02-02] MEDS ORDERED: ONDANSETRON 4 MG/2 ML VIAL ONE (10:07)
[2022-02-02 10:11] VITALS: BP 120/70; PULSE 59
[2022-02-02] MEDS ORDERED: IBUPROFEN 600 MG TAB PO SCH (12:00)
== END 2022-02-02 10:58 | disposition home or self-care (01) ==
LOC: OR 06:29
PROVIDERS: ATTEND Surgery
DX: K80.10 Calculus of gallbladder with chronic cholecystitis without obstruction (principal); K21.9 Gastro-esophageal reflux disease without esophagitis; E28.2 Polycystic ovarian syndrome; Z88.0 Allergy status to penicillin; Z79.84 Long term (current) use of oral hypoglycemic drugs; Z79.899 Other long term (current) drug therapy; Z87.891 Personal history of nicotine dependence; Z80.3 Family history of malignant neoplasm of breast
CPT/HCPCS: 81025; 88304; 47562; J2250; J1100; J2710; J0690; J2405; J3010; J1885; J2704; J1170; J1644; J2001

== ENCOUNTER → 2022-06-16 | Outpatient (CLI) | payer OTHER ==
--- NOTE | 2022-06-16 15:05 | MR ---
MRI CERVICAL SPINE: CLINICAL HISTORY: Cervical disc displacement, Limited ROM, Craniosacral dysfunction, spondylosis with hnp TECHNIQUE: Multiplanar, multisequence imaging of the cervical spine is performed without IV contrast. COMPARISON: Outside MRI cervical spine May 22, 2021. Outside report not available. FINDINGS: Sagittal images of the cervical spine show the craniocervical junction to remain within nor mal limits. The cervical and upper thoracic spinal cord is normal in caliber and signal. There is st able loss of normal cervical curvature centered at C5-C6 level. The vertebral body and intravertebra l disk heights remain normal. The bone marrow signal intensity is within normal limits. Axial images show C2-C3 through C4-C5 levels to appear within normal limits. Axial images at C5-C6 level show tiny central disc protrusion mildly effacing the anterior thecal sac at peak of abnormal curvature nearly up to ventral surface of spinal cord. Bilateral neural foramina are patent. No significant change from prior. Axial images at C6-C7 and C7-T1 levels remain within normal limits. IMPRESSION: Loss of normal cervical curvature centered at C5 level redemonstrated. No significant florentin nge from prior outside MRI.
== END | disposition home or self-care (01) ==
LOC: RADMRIMAIN 14:12
PROVIDERS: ATTEND Orthopaedic Surgery
DX: M50.20 Other cervical disc displacement, unspecified cervical region (principal); M54.12 Radiculopathy, cervical region
CPT/HCPCS: 72141

== ENCOUNTER → 2022-07-23 | Outpatient (CLI) | payer OTHER ==
[2022-07-23 09:56] VITALS: BP 136/79; PULSE 77; RESP 18; TEMP 98.2
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
== END ==
LOC: PNWHC3 08:51
PROVIDERS: ATTEND Specialist
DX: M47.812 Spondylosis without myelopathy or radiculopathy, cervical region (principal); E11.9 Type 2 diabetes mellitus without complications; Z79.84 Long term (current) use of oral hypoglycemic drugs; Z88.0 Allergy status to penicillin; Z87.891 Personal history of nicotine dependence
CPT/HCPCS: 99211

== ENCOUNTER → 2022-12-30 | Outpatient (CLI) | payer OTHER ==
--- NOTE | 2022-12-30 11:55 | P.SLEEP ---
History of Present Illness DATE: 12/30/2022 CONSULTATION/NEW PATIENT EVALUATION HISTORY OF PRESENT ILLNESS/SLEEP-WAKE EVALUATION: 32-year-old lady had been evaluated in the sleep center for possible obstructive sleep apnea hypopnea syndrome. SLEEP SCHEDULE: Usually sleep schedule on 11:30 PM to 68 AM. FALLING ASLEEP: Patient has problems with falling asleep, although no TV in bedroom. DURING SLEEP: Patient snores and wakes up from sleep 3 times with nocturia. Positive history of jerking movements during sleep. No history of hypnogogical hallucinations, sleep paralysis, or cataplexy. DURING THE DAY/WAKE STATE: Patient wake up tired in the morning, has difficulties to pay attention, irritability, episodes of anxiety. Sartell sleepiness scale is 2. Occasionally patient may take naps usually at afternoon time. PAST MEDICAL HISTORY: Acid reflux, polycystic ovary syndrome. PAST SURGICAL HISTORY: And adenoidectomy, cholecystectomy, , D&C. MEDICATIONS: Metformin 500 mg twice a day, omeprazole 40 mg once a day, vitamins and supplements. SOCIAL HISTORY: Negative for smoking or using alcohol. FAMILY HISTORY: Cancer. REVIEW OF SYSTEMS: Snoring, multiple awakenings from sleep. No fevers. No double vision. No recent chest. No shortness of breath. No abdominal pain. No bleeding episodes. No blood in urine. No seizure episodes. PHYSICAL EXAMINATION: GENERAL: A pleasant patient without any distress. VITAL SIGNS: BP 128/85 , HR 69 , RR 12 , weight 277.4 pounds, height 5 foot 7 inches, body mass index 43.3 . HEENT: PERRLA, EOMI. Evaluation of oropharynx showed tongue protrudes midline, low position of soft palate Mallampati 3. NECK: Supple. No JVD. Thyroid is not palpable. 15-3/4 slightly obese inches in circumference. LUNGS: Clear to percussion and to auscultation. Good air exchange. No wheezing or rhonchi. HEART: S1, S2 regular. No murmurs, gallops or rubs. ABDOMEN: Soft and nontender. Bowel sounds are present. No organomegaly appreciated, . EXTREMITIES: No clubbing or cyanosis. COLLAR SEPARATOR: Awake, alert, and oriented x3. Cranial nerves 2 to 7 intact. There is no fasciculation or atrophy noted. No focal deficits observed. ASSESSMENT: 1.Snoring, multiple awakenings from sleep, small oropharyngeal air space. Obstructive sleep apnea hypopnea syndrome. 2.Obesity, body mass index 43.3. 3.Jerking movements during the sleep, possibly periodic limb movements. 4.Polycystic ovary syndrome. 5 Gastroesophageal reflux disease. 6 Status post adenoidectomy. 7.Status post cholecystectomy. PLAN: 1. Polysomnography for evaluation of patient's breathing during sleep and to check for possible periodic limb movements. 2. CPAP/BiPAP titration if sleep study confirms obstructive sleep apnea-hy popnea syndrome. 3. Preferable position during sleep on the side. 4. No driving if patient feels any sleepiness. Patient is aware of civil and criminal liability for unsafe driving. 5. Sleep hygiene with regular sleep time for at least 7.5-8 hours. 6. Watching and losing weight. Thank you very much for referring this patient for consultation. Sincerely, Ilya Duran MD, PhD, FAASM. Diplomat of [place] [employer], Sleep Medicine Board by [place] [employer] [place] [employer] [facility] [place] Past Medical History Past Medical History: GERD/Reflux Additional Past Medical History / Comment(s): freq diarrhea and intermittent abd pain, pcos-takes metformin History of Any Multi-Drug Resistant Organisms: None Reported Past Surgical History: Adenoidectomy, Section Additional Past Surgical History / Comment(s): D&C,achilles tendon repair Past Anesthesia/Blood Transfusion Reactions: No Reported Reaction, Family History of Problems w/ Anesthesia Additional Past Anesthesia/Blood Transfusion Reaction / Comment(s): mom and sister have PONV Smoking Status: Never smoker - Past Family History Mother Family Medical History: No Reported History Medications and Allergies Home Medications Medication Instructions Recorded Confirmed Type metFORMIN HCL [Glucophage] 500 mg PO TID 07/29/16 02/02/22 History Colestipol HCl 1 gm PO DAILY 01/30/22 02/02/22 History Liraglutide [Saxenda] 0.6 mg SQ DAILY 01/30/22 02/02/22 History Omeprazole [PriLOSEC] 20 mg PO AC-BRKFST 01/30/22 02/02/22 History Vit No.179/Iron/Folic 1 each PO DAILY 01/30/22 02/02/22 History [ Tablet] HYDROcodone/APAP 5-325MG [[place] 1 tab PO Q6HR PRN 3 Days #6 tab 02/02/22 Rx 5-325] Allergies Allergy/AdvReac Type Severity Reaction Status Date / Time Penicillins Allergy Rash/Hives Verified 02/02/22 06:58 as a child Sleep Note - Sleep Note Sleep Note: Temperature: Pulse Rate: Respiratory Rate: Blood Pressure: SpO2: Height: Weight: BMI: Neck Circumference:
== END ==
LOC: 3 N SLEEP 11:00
PROVIDERS: ATTEND Internal Medicine
DX: G47.33 Obstructive sleep apnea (adult) (pediatric) (principal); K21.9 Gastro-esophageal reflux disease without esophagitis; E28.2 Polycystic ovarian syndrome; E66.9 Obesity, unspecified; Z98.890 Other specified postprocedural states; Z68.41 Body mass index [BMI] 40.0-44.9, adult; Z99.89 Dependence on other enabling machines and devices; Z88.0 Allergy status to penicillin; Z87.891 Personal history of nicotine dependence
CPT/HCPCS: 99211

== ENCOUNTER → 2023-06-15 | Outpatient (CLI) | payer OTHER ==
[2023-06-15 13:11] VITALS: BP 139/99; PULSE 86; TEMP 98.2; BMI 44.2
--- NOTE | 2023-06-15 14:31 | P.HPBAR ---
Bariatric H&P - History & Physicial H&P Date: 06/15/23 History & Physicial: Visit/CC: initial clinic visit Patient initial contact: Initial weight: Initial weight in pounds: Height: 5 ft 8 in Initial BMI: Last weight: Current weight: 131.995 kg Current weight in pounds: 291.00 Current BMI: 44.2 [place] body weight (based on NIH guidelines): 63.503 kg Excess body weight loss: The patient is a 33 year-old F who presents for Bariatric Assessment. Patient here to discuss surgical weight loss options. BMI 44. Patient has been heavier in the past. Her highest weight was around 330. She was able to lose weight on her own down to low 200s. Ever since her last she has had difficulty losing weight. Patient with history of PCO S and GERD symptoms. He takes omeprazole 40 mg daily. This controls her symptoms well. No history of DVT or dysphagia. No tobacco use. Abdominal surgeries include laparoscopic cholecystectomy and . She has tried a variety of different weight loss medications without success. She has a 3-year-old at home. Patient is interes jody in sleeve gastrectomy. Review of Systems The patient denies any acute changes in vision or hearing, no dysphagia or odynophagia, no chest pain or shortness of breath, no dysuria or hematuria, no headache, no runny nose, no rectal bleeding or melena, no unexplained weight loss Past Medical History Past Medical History: GERD/Reflux Additional Past Medical History / Comment(s): freq diarrhea and intermittent abd pain, pcos-takes metformin History of Any Multi-Drug Resistant Organisms: None Reported Past Surgical History: Adenoidectomy, Section Additional Past Surgical History / Comment(s): D&C,achilles tendon repair Past Anesthesia/Blood Transfusion Reactions: No Reported Reaction, Family History of Problems w/ Anesthesia Additional Past Anesthesia/Blood Transfusion Reaction / Comm: mom and sister have PONV Past Psychological History: No Psychological Hx Reported Smoking Status: Never smoker Past Alcohol Use History: None Reported Past Drug Use History: None Reported - Past Family History Mother Family Medical History: No Reported History Surgical - Exam Vital Signs Temp Pulse BP 98.2 F 86 139/99 06/15/23 13:03 06/15/23 13:03 06/15/23 13:03 Physical exam: General: Well-developed, well-nourished HEENT: Normocephalic, sclerae nonicteric Abdomen: Nontender, nondistended Extremities: No edema Neuro: Alert and oriented Bariatric Assessment & Plan (1) Morbid obesity with BMI of 40.0-44.9, adult Narrative/Plan: 33-year-old female here for new patient bariatric assessment. Patient is interested in sleeve gastrectomy. She and I discussed other surgical options as well. Patient with history of chronic reflux. She is aware that sleeve gastrectomy would potentially lead to further reflux and possibly even require conversion to gastric bypass if symptoms are uncontrollable. Additional surgical risks reviewed as well. We'll tentatively plan EGD as preoperative assessment for gastric pathology. She will follow up with me after that to discuss surgery scheduling further. Status: Acute Bariatric Checklist Checklist: Plan: Checklist: EGD: 1. Hiatal hernia: 2. H. Pylori: HgbA1c: Vitamin D: Smoking: Former smoker Primary care physician referral: KIRTI AGARWAL Psychiatry clearance: Cardiology clearance: Sleep study: Diet journal: VTE risk score: VTE risk level: Rehab needs at discharge:
[2023-06-15 18:28] LABS: HCT 43.2 % (37.2-46.3); HGB 13.3 g/dL (12.0-15.0); MCH 29.9 pg (27.0-32.0); MCHC 30.8 g/dL (32.0-37.0); MCV 97.1 FL (80.0-97.0); Mean Platelet Volume 9.8 FL (9.5-12.2); NRBC Per 100 WBC 0 X 10*3/uL (0.00-0.01); Platelet Count 351 X 10*3/uL (140-440); RBC 4.45 X 10*6/uL (4.10-5.20); RDW 12.7 % (11.5-14.5); WBC 11.12 X 10*3/uL (4.50-10.00)
[2023-06-15 21:13] LABS: ALT 15 U/L (8-44); AST 16 U/L (13-35); Albumin 4.2 g/dL (3.8-4.9); Albumin/Globulin Ratio 1.35 Ratio (1.60-3.17); Alkaline Phosphatase 65 U/L (41-126); BUN/Creat Ratio 13.86 Ratio (12.00-20.00); Blood Urea Nitrogen 9.7 mg/dL (9.0-27.0); Calcium 9.3 mg/dL (8.7-10.3); Carbon Dioxide 25.5 mmol/L (21.6-31.8); Chloride 104 mmol/L (96-109); Globulin 3.1 g/dL (1.6-3.3); Glucose 85 mg/dL (70-110); Iron 54 UG/DL (50-170); Potassium 4.8 mmol/L (3.5-5.5); Sodium 140 mmol/L (135-145); Total Bilirubin <0.2 mg/dL (0.3-1.2); Total Protein 7.3 g/dL (6.2-8.2)
== END ==
LOC: BARWHC3 12:46
PROVIDERS: ATTEND Surgery
DX: K21.9 Gastro-esophageal reflux disease without esophagitis (principal); E66.01 Morbid (severe) obesity due to excess calories; K90.89 Other intestinal malabsorption; Z68.41 Body mass index [BMI] 40.0-44.9, adult; Z88.0 Allergy status to penicillin; Z87.891 Personal history of nicotine dependence
CPT/HCPCS: 84425; 80053; 82746; 83540; 85027; 82306; G0480; G0463; 80323; 99212

== ENCOUNTER → 2023-08-23 | Outpatient (CLI) | payer OTHER ==
[2023-08-23 15:16] VITALS: BMI 45.0
== END ==
LOC: BARWHC3 12:46
PROVIDERS: ATTEND Surgery
DX: E66.01 Morbid (severe) obesity due to excess calories (principal); Z71.3 Dietary counseling and surveillance; Z68.42 Body mass index [BMI] 45.0-49.9, adult; Z88.0 Allergy status to penicillin; Z87.891 Personal history of nicotine dependence
CPT/HCPCS: 97804; G0463; 99211

== ENCOUNTER → 2023-09-14 | Outpatient (CLI) | payer OTHER ==
[2023-09-14 14:08] VITALS: BP 138/92; PULSE 79; TEMP 98.4; BMI 44.6
--- NOTE | 2023-09-14 14:41 | P.BASOAP ---
Subjective Progress Note Date: 09/14/23 Principal diagnosis: Morbid obesity Patient returns after recent upper endoscopy. Patient had EGD for preoperative assessment. Patient had mild gastritis and a small gastric polyp. Biopsies were negative. Patient remains interested in sleeve gastrectomy. Objective - Vital Signs Vital signs: Vital Signs Temp 98.4 F 09/14/23 13:27 Pulse 79 09/14/23 13:27 Resp BP 138/92 09/14/23 13:27 Pulse Ox FiO2 Intake & Output 09/13/23 09/14/23 09/14/23 18:59 06:59 18:59 Weight 133.356 kg - Exam Abdomen: Soft, nontender, nondistended Assessment/Plan (1) Morbid obesity with BMI of 40.0-44.9, adult Narrative/Plan: 33-year-old female with morbid obesity. Patient remains interested in sleeve gastrectomy. Recent EGD findings discussed. Preoperative consent form along with risks and benefits discussed again in detail. Will schedule for laparoscopic da Tea assisted sleeve gastrectomy, possible open in the next month or 2. The risks of bleeding, infection, stenosis, stricture, leak, abscess, fistula formation, peritonitis, poor weight loss, reflux, vomiting, conversion to an open procedure, aborting sleeve gastrectomy, [place], PE, DVT, and were discussed. The patient understands and wishes to proceed. Plan: Date: 09/14/23 Initial Weight: Initial BMI: Current Weight: 133.356 kg Current BMI: 44.6 Type of Surgery: Total Volume in Band: Previous Volume: Volume Removed: Volume Added: Band Size:
== END ==
LOC: BARWHC3 12:51
PROVIDERS: ATTEND Surgery
DX: E66.01 Morbid (severe) obesity due to excess calories (principal); K21.9 Gastro-esophageal reflux disease without esophagitis; K31.7 Polyp of stomach and duodenum; Z68.41 Body mass index [BMI] 40.0-44.9, adult; Z88.0 Allergy status to penicillin; Z87.891 Personal history of nicotine dependence
CPT/HCPCS: 99211

== ENCOUNTER → 2023-10-25 | Outpatient (CLI) | payer OTHER ==
[2023-10-25 15:43] LABS: Basophils # (A) 0.03 X 10*3/uL (0.00-0.10); Basophils % (A) 0.5 %; Eosinophils # (A) 0.07 X 10*3/uL (0.04-0.35); Eosinophils % (A) 1.2 %; HCT 42.6 % (37.2-46.3); HGB 13.4 g/dL (12.0-15.0); Lymphocytes # (A) 1.89 X 10*3/uL (0.90-5.00); Lymphocytes % (A) 33.6 %; MCHC 31.5 g/dL (32.0-37.0); MCV 95.3 FL (80.0-97.0); Monocytes # (A) 0.55 X 10*3/uL (0.20-1.00); Monocytes % (A) 9.8 %; NRBC Per 100 WBC 0 X 10*3/uL (0.00-0.01); Neutrophils # (A) 3.08 X 10*3/uL (1.80-7.70); Neutrophils % (A) 54.7 %; Platelet Count 260 X 10*3/uL (140-440); RBC 4.47 X 10*6/uL (4.10-5.20); RDW 13.5 % (11.5-14.5); WBC 5.63 X 10*3/uL (4.50-10.00)
[2023-10-25 15:55] LABS: ALT 21 U/L (8-44); AST 23 U/L (13-35); Albumin 4.3 g/dL (3.8-4.9); Albumin/Globulin Ratio 1.48 Ratio (1.60-3.17); Alkaline Phosphatase 64 U/L (41-126); BUN/Creat Ratio 7.71 Ratio (12.00-20.00); Blood Urea Nitrogen 5.4 mg/dL (9.0-27.0); Calcium 8.9 mg/dL (8.7-10.3); Chloride 103 mmol/L (96-109); Globulin 2.9 g/dL (1.6-3.3); Glucose 101 mg/dL (70-110); Potassium 4.1 mmol/L (3.5-5.5); Sodium 140 mmol/L (135-145); Total Bilirubin <0.2 mg/dL (0.3-1.2); Total Protein 7.2 g/dL (6.2-8.2)
== END | disposition home or self-care (01) ==
LOC: LABPAT 10:04
PROVIDERS: ATTEND Surgery
DX: Z01.812 Encounter for preprocedural laboratory examination (principal)
CPT/HCPCS: 36415; 80053; 85025; 86850; 86900; 86901

== ENCOUNTER 2023-11-01 09:40 | Inpatient (IN) | payer OTHER ==
[2023-11-01] MEDS: LACTATED RINGERS 1,000 ML IV ONE ×2 (11:15→13:25)
[2023-11-01 11:49] LABS: Glucose,Whole Blood 90 mg/dL (70-110)
--- NOTE | 2023-11-01 11:52 | P.GSHP ---
History of Present Illness H&P Date: 11/01/23 Chief Complaint: Morbid obesity 33-year-old female known to our service. Patient first seen in June. Initial BMI 44. Today's BMI 41. Her highest weight was around 330. Patient with history of PCOS and GERD. Takes omeprazole 40 mg daily. This controls her reflux well. Prior surgeries include lap maritza and . No history of DVT or dysphagia. No tobacco use. Past Medical History Past Medical History: GERD/Reflux Additional Past Medical History / Comment(s): PCOS-takes Metformin, occasional migraines. History of Any Multi-Drug Resistant Organisms: None Reported Past Surgical History: Adenoidectomy, Section, Cholecystectomy, Orthopedic Surgery Additional Past Surgical History / Comment(s): D&C, left achilles tendon repair. Past Anesthesia/Blood Transfusion Reactions: No Reported Reaction Additional Past Anesthesia/Blood Transfusion Reaction / Comment(s): Mom and sister have PONV. Smoking Status: Never smoker - Past Family History Mother Family Medical History: Cancer Additional Family Medical History / Comment(s): Breast cancer. Medications and Allergies Home Medications Medication Instructions Recorded Confirmed Type Medroxyprogesterone Acetate 5 mg PO DIRECTED 06/15/23 11/01/23 History [Provera] metFORMIN HCL 500 mg PO BID 06/15/23 11/01/23 History Multivitamins, Thera [Multivitamin 1 tab PO DAILY 06/16/23 11/01/23 History (formulary)] Omeprazole 40 mg PO QAM 10/27/23 11/01/23 History Vit No.179/Iron/Folic 1 each PO DAILY 10/27/23 11/01/23 History [ Tablet] Allergies Allergy/AdvReac Type Severity Reaction Status Date / Time Penicillins Allergy Rash/Hives Verified 11/01/23 11:30 as a child Surgical - Exam Vital Signs Temp Pulse Resp Pulse Ox 98.3 F 86 18 96 11/01/23 11:32 11/01/23 11:32 11/01/23 11:32 11/01/23 11:32 Physical exam: General: Well-developed, well-nourished HEENT: Normocephalic, sclerae nonicteric Abdomen: Nontender, nondistended Extremities: No edema Neuro: Alert and oriented Assessment and Plan (1) Morbid obesity with BMI of 40.0-44.9, adult Narrative/Plan: 33-year-old female with morbid obesity and comorbidities. Will proceed with laparoscopic da Tea assisted sleeve gastrectomy, possible open. The risks of bleeding, infection, stenosis, stricture, leak, abscess, fistula formation, peritonitis, poor weight loss, reflux, vomiting, conversion to an open procedure, aborting sleeve gastrectomy, NV, PE, DVT, and were discussed. The patient understands and wishes to proceed. Current Visit: No Status: Acute Code(s): E66.01 - MORBID (SEVERE) OBESITY DUE TO EXCESS CALORIES; Z68.41 - BODY MASS INDEX [BMI] 40.0-44.9, ADULT SNOMED Code(s): 612049867
[2023-11-01] MEDS: ACETAMINOPHEN TAB 500 MG TAB PO PRN (11:54)
[2023-11-01] MEDS: ONDANSETRON 4 MG/2 ML VIAL IVP PRN ×2 (11:54→16:43)
[2023-11-01] MEDS: DEXAMETHASONE SOD PHOSPHATE 4 MG/ML 1 ML VIAL IVP ONE (11:55)
[2023-11-01] MEDS: ENOXAPARIN 40 MG/0.4 ML SYRINGE SQ PRN (11:55)
[2023-11-01] MEDS ORDERED: HYDROmorphone (PF) 1 MG/ML ONE (12:24)
[2023-11-01] MEDS ORDERED: ROCURONIUM 10 MG/ML (5 ML VIAL) IV ONE (12:24)
[2023-11-01] MEDS ORDERED: MIDAZOLAM 2 MG/2 ML VIAL ONE (12:24)
[2023-11-01] MEDS ORDERED: LIDOCAINE 1% INJ 10MG/ML (20 ML MDV) ONE (12:24)
[2023-11-01] MEDS ORDERED: SUCCINYLCHOLINE CHLORIDE 200 MG/10 ML VIAL IV ONE (12:24)
[2023-11-01] MEDS ORDERED: PROPOFOL 10 MG/ML 20 ML VIAL IV ONE (12:24)
[2023-11-01] MEDS ORDERED: GLYCOPYRROLATE 0.2 MG/ML 2 ML VIAL ONE (12:24)
[2023-11-01] MEDS ORDERED: NEOSTIGMINE 1 MG/ML 10 ML VIAL ONE (12:24)
[2023-11-01] MEDS ORDERED: fentaNYL (PF) 50 MCG/ML 2 ML AMP ONE (12:24)
[2023-11-01] MEDS: ceFAZolin 3 GM in SODIUM CHLORIDE 0.9% 100 ML IVPB PRN (12:29)
[2023-11-01] MEDS: BUPIVACAINE (PF) 0.25% 30 ML VIAL SQ ONE ×3 (12:47→12:53)
[2023-11-01] MEDS ORDERED: NALOXONE 0.4 MG/ML 1 ML VIAL IV PRN (14:23)
[2023-11-01] MEDS ORDERED: diphenhydrAMINE 50 MG/ML 1 ML VIAL IVP PRN (14:23)
--- NOTE | 2023-11-01 14:35 | P.OP ---
Date of Procedure: 11/01/23 Procedure(s) Performed: PREOPERATIVE DIAGNOSIS: Morbid obesity, PCOS, GERD POSTOPERATIVE DIAGNOSIS: Same PROCEDURE: Da Tea assisted laparoscopic sleeve gastrectomy SURGEON: Enma EBL: Minimal ANESTHESIA: General COMPLICATIONS: None OPERATIVE PROCEDURE: Patient was placed in the operating table in the supine position. The patient was then placed under general anesthesia at that time. The abdomen was prepped and draped in the usual sterile fashion. A 5 mm optical trocar was placed in the left upper quadrant 20 cm inferior to the xiphoid process. Insufflation took place up to 15 mmHg. No adhesions were seen. A 5 mm subxiphoid incision was made and the medium David retractor was used to elevate the left lobe of liver anteriorly. This was held in place using the fixed arm retractor. An additional 12 mm trocar was placed in the right paramedian location and 2 additional 8 mm trochars were placed in the left upper quadrant one medial and one lateral to the initially placed optical trocar. All of these trochars were placed along the same plane. The initial 5 was then switched to an 8 mm trocar. The robot was then docked appropriately. The 8 mm camera was placed in the left paramedian trocar site down viewing. A fenestrated bipolar was placed in arm 1, arm 3 had the vessel sealer, arm 4 had the small grasper retractor. The hiatus was inspected and there was no visible hiatal hernia. At that point I moved to the distal aspect of the greater curvature the stomach. The short gastric vasculature were divided using the vessel sealer. This dissection took place distally until we were 4 cm from the pylorus. The posterior adhesions were divided as well. The dissection then took place proximally along the stomach until the posterior short gastrics were divided and the fundus of the stomach was fully mobilized. Once the stomach was fully mobilized the blunt tipped 40-Yoruba bougie dilator was advanced into the stomach and advanced all the way to the prepyloric location. The patient's stomach by palpation seemed to be of average thickness. A total of 6 firings of the stapler took place to remove the stomach. The first load was green second 2 loads were blue. Fourth load and fifth load were blue with seam guard buttressing. Final load was white over a small 1 cm residual piece of fundus. The stomach was then placed in the right upper quadrant after it was fully excised. The oral gastric tube was reinserted. The stomach was insufflated with approximately 100 mL of methylene blue. No evidence of leak or obstruction was seen. Pressure was then dropped to 8 mm for 2-3 minutes. The staple line was inspected and no bleeding was seen. Tisseel fibrin glue was then used along the length of the staple line. The robot was then undocked. The da Tea laparoscope was used and the stomach was removed from the 12 mm trocar site without difficulty. The fascia at the 12mm site was closed using [id number] 0 Vicryl sutures with the laparoscopic suture passer and Genaro Sadiq technique. The insufflation was evacuated. The skin at all 5 incisions were closed using 4-0 Monocryl sutures. Skin glue was then applied. DISPOSITION: Stable to recovery room
[2023-11-01] MEDS: HYDROmorphone 0.5 MG/0.5 ML SYRINGE IVP PRN (16:04)
[2023-11-01] MEDS: SIMETHICONE 80 MG CHEWABLE PO PRN (16:43)
[2023-11-01] MEDS: ACETAMINOPHEN IV (For NPO) 1,000 MG in EMPTY BAG 1 BAG IVPB SCH (16:54)
[2023-11-01] MEDS: 0.9% NACL WITH KCL 20 MEQ/L 1,000 ML IV SCH (20:15)
[2023-11-01] MEDS: HYDROmorphone 1 MG/ML 1 ML SYRINGE IVP PRN (20:22)
[2023-11-01] MEDS: HYOSCYAMINE ORAL DROPS 1.875 MG/15 ML BOTTLE PO PRN (20:27)
[2023-11-01] MEDS: ALBUTEROL NEBULIZED 2.5 MG/3 ML INHALATION SCH (21:21)
[2023-11-01] MEDS: ENOXAPARIN 40 MG/0.4 ML SYRINGE SQ SCH (23:37)
[2023-11-02 04:21] LABS: African American GFR (CKD) >90 (>60 ml/min/1.73 sqM); Anion Gap 10 mmol/L; Blood Urea Nitrogen 6 mg/dL (7-17); Calcium 8.3 mg/dL (8.4-10.2); Carbon Dioxide 20 mmol/L (22-30); Chloride 107 mmol/L (98-107); Magnesium 1.9 mg/dL (1.6-2.3); Non-African American GFR(CKD) >90 (>60 ml/min/1.73 sqM); Potassium 4.2 mmol/L (3.5-5.1); Sodium 137 mmol/L (137-145)
[2023-11-02 04:25] LABS: Basophils % (A) 0 %; Eosinophils # (A) 0.1 k/uL (0-0.7); Eosinophils % (A) 0 %; HCT 39.5 % (34.0-46.0); HGB 13.3 gm/dL (11.4-16.0); Lymphocytes # (A) 1.6 k/uL (1.0-4.8); Lymphocytes % (A) 12 %; MCH 31.2 pg (25.0-35.0); MCHC 33.6 g/dL (31.0-37.0); MCV 92.8 fL (80.0-100.0); Mean Platelet Volume 8.6; Monocytes # (A) 0.9 k/uL (0-1.0); Monocytes % (A) 6 %; Neutrophils # (A) 11.4 k/uL (1.3-7.7); Neutrophils % (A) 81 %; RBC 4.26 m/uL (3.80-5.40); RDW 13.5 % (11.5-15.5)
[2023-11-02 06:27] LABS: Platelet Count 272 k/uL (150-450)
[2023-11-02] MEDS: PANTOPRAZOLE 40 MG/10 ML VIAL IV SCH (08:08)
[2023-11-02] MEDS: KETOROLAC 15 MG/ML 1 ML VIAL IVP SCH (08:58)
--- NOTE | 2023-11-02 11:24 | P.PN ---
Subjective Progress Note Date: 11/02/23 CHIEF COMPLAINT: Morbid obesity HISTORY OF PRESENT ILLNESS: Postop day #1 status post laparoscopic sleeve gastrectomy. Patient complains of soreness.. Denies any vomiting did have some nausea. Denies any flatus. She has been urinating. She has been up and ambulating. Afebrile. WBC is elevated at 14 PHYSICAL EXAM: VITAL SIGNS: Reviewed. GENERAL: Well-developed in no acute distress. HEENT: No sclera icterus. Extraocular movements grossly intact. Moist buccal mucosa. Head is atraumatic, normocephalic. ABDOMEN: Soft. Nondistended. Nontender. NEUROLOGIC: Alert and oriented. Cranial nerves II through XII grossly intact. ASSESSMENT: 1. Morbid obesity PLAN: -Awaiting upper GI results. Start bariatric clear liquids pending upper GI results -Continue pain management. Toradol added -Continue antiemetics -Continue IV fluids -Encourage patient to ambulate -Encourage patient to use incentive spirometer -Repeat CBC in a.m. for leukocytosis GI prophylaxis Protonix and DVT prophylaxis Lovenox Physician Complaint Coordinator note has been reviewed by physician. Signing provider agrees with the documented findings, assessment, and plan of care. Patient doing well today. Mild soreness at the extraction site. Upper GI shows no leak or obstruction. Begin bariatric liquids. Likely discharge tomorrow. Objective - Vital Signs Vital signs: Vital Signs Temp 98.4 F 11/02/23 07:32 Pulse 74 11/02/23 07:32 Resp 16 11/02/23 07:32 BP 150/84 11/02/23 07:32 Pulse Ox 94 L 11/02/23 07:32 FiO2 Intake & Output 11/01/23 11/02/23 11/02/23 18:59 06:59 18:59 Intake Total 1800 Output Total 20 Balance 1780 Weight 127.2 kg Intake: IV 1800 Output: Estimated Blood Loss 20 Other: Voiding Method Toilet # Voids 4 - Labs CBC & Chem 7: 11/02/23 03:14 11/02/23 03:14 Labs: Abnormal Lab Results - Last 24 Hours (Table) 11/02/23 11/02/23 Range/Units 03:14 03:14 WBC 14.0 H (3.8-10.6) k/uL Neutrophils # 11.4 H (1.3-7.7) k/uL Carbon Dioxide 20 L (22-30) mmol/L BUN 6 L (7-17) mg/dL Creatinine 0.42 L (0.52-1.04) mg/dL Calcium 8.3 L (8.4-10.2) mg/dL
--- NOTE | 2023-11-02 12:46 | FL ---
EXAMINATION TYPE: FL UGI DATE OF EXAM: 11/02/2023 COMPARISON: None HISTORY: Gastric sleeve TECHNIQUE: A single contrast UGI study is performed. FINDINGS: Contrast passes from the distal esophagus through the gastric sleeve with no significant he sitancy. No extravasation of contrast is evident. Very minimal free air is under the right diaphragm. Overhead radiographs were obtained which are unremarkable. IMPRESSION: 1. Normal post gastric sleeve without obstruction or hesitancy. No extravasation.
[2023-11-02 13:18] VITALS: BMI 41.4
[2023-11-02] MEDS: 0.9% NACL WITH KCL 20 MEQ/L 1,000 ML IV SCH (19:26)
--- NOTE | 2023-11-03 06:12 | PN ---
PROGRESS NOTE CHIEF COMPLAINT: Status post gastric stapling. HISTORY OF PRESENT ILLNESS: This lady is doing well. She has had no fever, chills, significant pain, nausea, vomiting, etc. PHYSICAL EXAMINATION: VITAL SIGNS: Normal. CHEST: Clear. CARDIAC: Normal. IMPRESSION: Status post gastric stapling. PLAN: Continue postop management and probably home tomorrow. MMODL / IJN: [id number] /
--- NOTE | 2023-11-03 06:12 | HP ---
HISTORY AND PHYSICAL CHIEF COMPLAINT: Morbid obesity. HISTORY OF PRESENT ILLNESS: First known admission for this 33-year-old white female who is in for an elective gastric stapling. She is in good health otherwise. She has been treated in the past for depression, low vitamin D, and had a history of hypoglycemia. Remainder of her history is unremarkable. She is allergic to penicillin and Paxil. She used to smoke, but does not any longer. PHYSICAL EXAMINATION: VITAL SIGNS: Normal. HEENT: Head, ears, eyes, nose, mouth and throat are normal. CHEST: Clear. CARDIAC: Normal. ABDOMEN: Protuberant, soft, and nontender without masses. EXTREMITIES: Normal. NEUROLOGICAL: She is intact. DIAGNOSIS: She is admitted to the hospital with diagnosis, 1. Morbid obesity. PLAN: Gastric stapling. EDMUNDO / PAMN: [id number] /
[2023-11-03] MEDS ORDERED: bisacodyL 5 MG TABLET.DR PO PRN (08:00)
[2023-11-03 08:56] LABS: Basophils # (A) 0.05 X 10*3/uL (0.00-0.10); Basophils % (A) 0.4 %; Eosinophils # (A) 0.25 X 10*3/uL (0.04-0.35); Eosinophils % (A) 2.2 %; HGB 10.5 g/dL (12.0-15.0); Lymphocytes # (A) 3.87 X 10*3/uL (0.90-5.00); Lymphocytes % (A) 34.2 %; MCH 29.3 pg (27.0-32.0); MCHC 30.9 g/dL (32.0-37.0); Mean Platelet Volume 10.2 FL (9.5-12.2); Monocytes # (A) 0.82 X 10*3/uL (0.20-1.00); Monocytes % (A) 7.3 %; NRBC Per 100 WBC 0 X 10*3/uL (0.00-0.01); Neutrophils # (A) 6.26 X 10*3/uL (1.80-7.70); Neutrophils % (A) 55.4 %; Platelet Count 259 X 10*3/uL (140-440); RBC 3.58 X 10*6/uL (4.10-5.20); RDW 13.3 % (11.5-14.5); WBC 11.31 X 10*3/uL (4.50-10.00)
[2023-11-03 09:51] VITALS: BP 132/78; PULSE 60; RESP 20; TEMP 97.6
--- NOTE | 2023-11-03 11:18 | P.DS ---
Providers Date of admission: 11/01/23 10:47 Expected date of discharge: 11/03/23 Attending physician: Eric Norwood Consults: 11/01/23 14:23 Consult Physician Routine Consulting Provider: Lex Elmore Consult Reason/Comments: med mgmt Do you want consulting provider notified?: Yes Primary care physician: Lex Elmore Hospital Course: Discharge diagnosis 1. Morbid obesity Hospital course This is a 33-year-old female with a history of morbid obesity. She is status post laparoscopic sleeve gastrectomy. Upper GI shows no evidence of leak or obstruction. She is tolerating diet. Pain is controlled. She is having flatus. Denies any difficulty urinating. She has been up and ambulating. She is stable for discharge. Please refer to chart for any further details. Physician Director Critical Care note has been reviewed by physician. Signing provider agrees with the documented findings, assessment, and plan of care. Patient Condition at Discharge: Stable Plan - Discharge Summary Discharge Rx Participant: Yes New Discharge Prescriptions: New Simethicone 40 mg/0.6 ml Drops [Mylicon Drops] 40 mg PO PCHS PRN #30 ml PRN Reason: Gas Omeprazole [PriLOSEC] 40 mg PO DAILY #90 cap traMADol HCl [Ultram] 50 mg PO Q6HR PRN 2 Days #5 tab PRN Reason: Pain bisacodyL [Dulcolax] 5 mg PO DAILY PRN #10 tab PRN Reason: Constipation Ondansetron Odt [Zofran Odt] 4 mg PO Q8HR PRN #9 tab PRN Reason: Nausea Continue metFORMIN HCL 500 mg PO BID Medroxyprogesterone Acetate [Provera] 5 mg PO DIRECTED Omeprazole 40 mg PO QAM Multivitamins, Thera [Multivitamin (formulary)] 1 tab PO DAILY Vit No.179/Iron/Folic [ Tablet] 1 each PO DAILY Discharge Medication List Medroxyprogesterone Acetate [Provera] 5 mg PO DIRECTED 06/15/23 [History] metFORMIN HCL 500 mg PO BID 06/15/23 [History] Multivitamins, Thera [Multivitamin (formulary)] 1 tab PO DAILY 06/16/23 [History] Omeprazole 40 mg PO QAM 10/27/23 [History] Vit No.179/Iron/Folic [ Tablet] 1 each PO DAILY 10/27/23 [History] Omeprazole [PriLOSEC] 40 mg PO DAILY #90 cap 11/03/23 [Rx] Ondansetron Odt [Zofran Odt] 4 mg PO Q8HR PRN #9 tab 11/03/23 [Rx] Simethicone 40 mg/0.6 ml Drops [Mylicon Drops] 40 mg PO PCHS PRN #30 ml 11/03/23 [Rx] bisacodyL [Dulcolax] 5 mg PO DAILY PRN #10 tab 11/03/23 [Rx] traMADol HCl [Ultram] 50 mg PO Q6HR PRN 2 Days #5 tab 11/03/23 [Rx] Follow up Appointment(s)/Referral(s): Lex Elmore MD [Primary Care Provider] - 1-2 Days Bariatric [place], [place] [NON-STAFF] - 11/05/23 Ambulatory/Diagnostic Orders: Basic Metabolic Panel [LAB.AMB] Time Frame: 3 Days, Location: None Selected Magnesium [LAB.AMB] Location: None Selected Activity/Diet/Wound Care/Special Instructions: No driving while taking Ultram No lifting over 10 pounds You may shower. No soaking or tub baths for 2 weeks Very light activity until you are reevaluated at your follow up appointment with your surgeon No straws or carbonated beverages Discharge Disposition: HOME SELF-CARE
--- NOTE | 2023-11-05 09:28 | P.PN ---
Subjective Progress Note Date: 11/03/23 This is a 33 year old female patient of Dr. Collazo who underwent an elective laproscopic sleeve gastrectomy. Patient is evaluated today postoperative day #2 . Underwent upper GI and passed was started on clear liquid diet and tolerating. Reporting minimal abdominal discomfort. Patient has been up ambulating without difficulty. White blood cell count down to 11.31. Cleared by surgery for discharge and medically she is doing well and cleared for discharge today as well. Review of Systems Constitutional: Denied any fatigue denied any fever. Cardio vascular: denied any chest pain, palpitations Gastrointestinal: denied any nausea, vomiting, diarrhea Pulmonary: Denied any shortness of breath cough Neurologic denied any new focal deficits All inpatient medications were reviewed and appropriate changes in these medications as dictated in the interval history and assessment and plan. PHYSICAL EXAMINATION: GENERAL: The patient is alert and oriented x3, not in any acute distress. Well developed, well nourished. HEENT: Pupils are round and equally reacting to light. EOMI. No scleral icterus. No conjunctival pallor. Normocephalic, atraumatic. No pharyngeal erythema. No thyromegaly. CARDIOVASCULAR: S1 and S2 present. No murmurs, rubs, or gallops. PULMONARY: Chest is clear to auscultation, no wheezing or crackles. ABDOMEN: Soft, nontender, nondistended, normoactive bowel sounds. No palpable organomegaly. MUSCULOSKELETAL: No joint swelling or deformity. EXTREMITIES: No cyanosis, clubbing, or pedal edema. NEUROLOGICAL: Gross neurological examination did not reveal any focal deficits. SKIN: No rashes. Assessment and Plan Morbid obesity postoperative day #2 laproscopic sleeve gastrectomy Gastroesophageal reflux disease maintained on PPI Hx of PCOS maintained on metformin which can continue on discharge. Leukocytosis reactive and improving. GI prophylaxis DVT prophylaxis as per primary Patient is medically stable for discharge home. Recommending to continue all same home medications. Repeat BMP, magnesium in 2 to 3 days. Follow up with PCP Dr. Elmore on discharge an appt has been scheduled for November 08. The impression and plan of care has been dictated by Gayatri Gambino, Nurse Practitioner as directed. Dr. Luz MD I have performed a history and physical examination and medical decision making of this patient, discussed the same with the dictator, and agree with the dictators assessment and plan as written, documented as a scribe. Based on total visit time, I have performed more than 50% of this visit. Objective - Vital Signs Vital signs: Vital Signs Temp 97.6 F 11/03/23 08:08 Pulse 60 11/03/23 08:08 Resp 20 11/03/23 08:08 BP 132/78 11/03/23 08:08 Pulse Ox 94 L 11/03/23 08:08 FiO2 Intake & Output 11/02/23 11/03/23 11/03/23 18:59 06:59 18:59 Weight 127.2 kg Other: Voiding Method Toilet # Voids 3 4 - Labs CBC & Chem 7: 11/03/23 03:59 11/02/23 03:14 Labs: Abnormal Lab Results - Last 24 Hours (Table) 11/03/23 Range/Units 03:59 WBC 11.31 H (4.50-10.00) X 10*3/uL RBC 3.58 L (4.10-5.20) X 10*6/uL Hgb 10.5 L (12.0-15.0) g/dL Hct 34.0 L (37.2-46.3) % MCHC 30.9 L (32.0-37.0) g/dL Immature Gran # 0.06 H (0.00-0.04) X 10*3/uL Assessment and Plan Time with Patient: Less than 30
== END 2023-11-03 13:12 | disposition home or self-care (01) | DRG 403 ==
LOC: 2ORMAIN 10:47 → 4SSUR 16:05
PROVIDERS: ADMIT Surgery; ATTEND Surgery
PROC: 0DB64Z3 Excision of Stomach, Percutaneous Endoscopic Approach, Vertical (ICD-10-PCS; principal; 2023-11-01 12:00)
DX: E66.01 Morbid (severe) obesity due to excess calories (principal); Z68.41 Body mass index [BMI] 40.0-44.9, adult; E28.2 Polycystic ovarian syndrome; K21.9 Gastro-esophageal reflux disease without esophagitis; Z79.84 Long term (current) use of oral hypoglycemic drugs; Z87.891 Personal history of nicotine dependence; Z88.0 Allergy status to penicillin
CPT/HCPCS: 74240; 80051; 81025; 82310; 82565; 83735; 84100; 84520; 85025; 88307

== ENCOUNTER → 2023-11-05 | Outpatient (CLI) | payer OTHER ==
[2023-11-05 11:08] VITALS: BP 124/82; PULSE 89; TEMP 98.2; BMI 41.8
== END ==
LOC: BARWHC3 09:46
PROVIDERS: ATTEND Surgery
DX: E66.01 Morbid (severe) obesity due to excess calories (principal); F41.9 Anxiety disorder, unspecified; Z90.3 Acquired absence of stomach [part of]; Z88.8 Allergy status to other drugs, medicaments and biological substances; Z88.0 Allergy status to penicillin; Z91.048 Other nonmedicinal substance allergy status; Z87.891 Personal history of nicotine dependence; Z68.41 Body mass index [BMI] 40.0-44.9, adult
CPT/HCPCS: 99211

== ENCOUNTER → 2023-11-11 | Outpatient (CLI) | payer OTHER ==
--- NOTE | 2023-11-11 13:36 | P.BASOAP ---
Subjective Progress Note Date: 11/11/23 Principal diagnosis: Morbid obesity Patient returns after sleeve gastrectomy 1.5 weeks ago. Doing well overall. Good oral intake of liquids. Approximately 60 ounces per day. No significant pain. Mild soreness at the extraction site. Patient has minimal reflux symptoms. Heart rate is normal today. No fevers. Patient states she does not like the taste of her protein drink unfortunately. She has had a rash around her incision sites and under her breast folds. Improving today. Objective - Vital Signs Vital signs: Vital Signs Temp 98.1 F 11/11/23 12:57 Pulse 69 11/11/23 12:57 Resp BP 124/79 11/11/23 12:57 Pulse Ox FiO2 Intake & Output 11/10/23 11/11/23 11/11/23 18:59 06:59 18:59 Weight 122.016 kg - Exam Abdomen: Soft, nontender, nondistended, incisions with mild surrounding induration and slight erythema, mild redness beneath breast folds Assessment/Plan (1) Morbid obesity with BMI of 40.0-44.9, adult Narrative/Plan: 33-year-old female doing well after recent sleeve gastrectomy. Continue gradually advancing diet. Continue light lifting. Continue antiacid therapy. Increase protein input. Recheck 2 to 3 weeks. Plan: Date: 11/11/23 Initial Weight: Initial BMI: Current Weight: 122.016 kg Current BMI: 40.8 Type of Surgery: Total Volume in Band: Previous Volume: Volume Removed: Volume Added: Band Size:
[2023-11-11 13:39] VITALS: BP 124/79; PULSE 69; TEMP 98.1; BMI 40.8
== END ==
LOC: BARWHC3 12:40
PROVIDERS: ATTEND Surgery
DX: E66.01 Morbid (severe) obesity due to excess calories (principal); J02.9 Acute pharyngitis, unspecified; K21.9 Gastro-esophageal reflux disease without esophagitis; R21 Rash and other nonspecific skin eruption; Z68.41 Body mass index [BMI] 40.0-44.9, adult; Z71.3 Dietary counseling and surveillance; Z98.84 Bariatric surgery status; Z88.8 Allergy status to other drugs, medicaments and biological substances; Z88.0 Allergy status to penicillin; Z87.891 Personal history of nicotine dependence; Z91.018 Allergy to other foods
CPT/HCPCS: 99211

== ENCOUNTER 2023-11-18 02:43 | Emergency (ER) | payer OTHER ==
[2023-11-18] MEDS: SODIUM CHLORIDE 0.9% 1,000 ML IV STA (03:05)
[2023-11-18 03:14] LABS: Basophils # (A) 0.1 k/uL (0-0.2); Basophils % (A) 1 %; Eosinophils # (A) 0.5 k/uL (0-0.7); Eosinophils % (A) 6 %; HCT 43.5 % (34.0-46.0); HGB 14.3 gm/dL (11.4-16.0); Lymphocytes # (A) 3.3 k/uL (1.0-4.8); Lymphocytes % (A) 38 %; MCHC 32.9 g/dL (31.0-37.0); MCV 94.2 fL (80.0-100.0); Mean Platelet Volume 8.3; Monocytes # (A) 0.4 k/uL (0-1.0); Monocytes % (A) 5 %; Neutrophils # (A) 4.3 k/uL (1.3-7.7); Neutrophils % (A) 49 %; Platelet Count 315 k/uL (150-450); RBC 4.62 m/uL (3.80-5.40); RDW 14.3 % (11.5-15.5); WBC 8.8 k/uL (3.8-10.6)
[2023-11-18] MEDS: KETOROLAC 15 MG/ML 1 ML VIAL IVP STA (03:20)
[2023-11-18 03:28] LABS: ALT 22 U/L (4-34); AST 25 U/L (14-36); African American GFR (CKD) >90 (>60 ml/min/1.73 sqM); Alkaline Phosphatase 74 U/L (38-126); Anion Gap 6 mmol/L; Blood Urea Nitrogen 8 mg/dL (7-17); Calcium 9.2 mg/dL (8.4-10.2); Carbon Dioxide 29 mmol/L (22-30); Chloride 104 mmol/L (98-107); Glucose 92 mg/dL (74-99); Lipase 232 U/L (23-300); Non-African American GFR(CKD) >90 (>60 ml/min/1.73 sqM); Sodium 139 mmol/L (137-145); Total Bilirubin 0.5 mg/dL (0.2-1.3); Total Protein 7.2 g/dL (6.3-8.2)
[2023-11-18 03:38] LABS: Amorphous Sediment,Urine Rare /hpf; Appearance,Urine Cloudy (Clear); Bacteria,Urine Many /hpf; Bilirubin,Urine Negative (Negative); Blood,Urine Small (Negative); Budding Yeast,Urine Few /hpf; Color,Urine Yellow; Glucose,Urine (UA) Negative (Negative); Granular Casts,Urine 16 /lpf (0); Hyaline Casts,Urine 8 /lpf (0-2); Ketones,Urine 2+ (Negative); Leukocyte Esterase,Urine Small (Negative); Mucus,Urine Many /hpf; Nitrite,Urine Negative (Negative); PH, Urine 5.5 (5.0-8.0); Protein,Urine Trace (Negative); RBC,Urine 7 /hpf (0-5); Specific Gravity,Urine 1.019 (1.001-1.035); Squamous Epithelial Cell,Urine 15 /hpf (0-4); Urobilinogen,Urine <2.0 mg/dL (<2.0); WBC,Urine 23 /hpf (0-5)
[2023-11-18 04:13] VITALS: RESP 18
[2023-11-18] MEDS: ACET/COD 300 MG/30 MG STARTER PACK 6 TAB BTL PO STA (04:17)
[2023-11-18] MEDS: cefTRIAXone IN SWFI 1,000 MG/10 ML SYRINGE IVP STA (04:21)
--- NOTE | 2023-11-18 04:22 | ED ---
Abdominal Pain HPI - General Chief Complaint: Abdominal Pain Stated Complaint: ABD Pain Post Surgery Time Seen by Provider: 11/18/23 02:50 Source: patient Mode of arrival: ambulatory Limitations: no limitations - History of Present Illness Initial Comments: 33-year-old female with past medical history of GERD and gastric sleeve performed on October 31 who presents emergency department with 2 days of abdominal pain. States that the pain wakes her up from sleep. Located in the right upper quadrant area and radiates around to her right flank. Pain last for a few hours before it self resolves. Denies vomiting. Admits to some nausea. No changes in her bowel or bladder habits. Denies any fevers. No pain near the surgical incision. Denies concern for . Patient is postop cholecystectomy. No other alleviating, precipitating modifying factors - Related Data Home Medications Medication Instructions Recorded Confirmed Medroxyprogesterone Acetate 5 mg PO DIRECTED 06/15/23 11/11/23 [Provera] Multivitamins, Thera [Multivitamin 1 tab PO DAILY 06/16/23 11/11/23 (formulary)] Omeprazole 40 mg PO QAM 10/27/23 11/11/23 Vit No.179/Iron/Folic 1 each PO DAILY 10/27/23 11/11/23 [ Tablet] Previous Rx's Medication Instructions Recorded Ondansetron Odt [Zofran Odt] 4 mg PO Q8HR PRN #9 tab 11/03/23 Simethicone 40 mg/0.6 ml Drops 40 mg PO PCHS PRN #30 ml 11/03/23 [Mylicon Drops] bisacodyL [Dulcolax] 5 mg PO DAILY PRN #10 tab 11/03/23 traMADol HCl [Ultram] 50 mg PO Q6HR PRN 2 Days #5 tab 11/03/23 Cephalexin [Keflex] 500 mg PO Q6HR #28 cap 11/18/23 Fluconazole [Diflucan] 150 mg PO ONCE #2 tab 11/18/23 Allergies Allergy/AdvReac Type Severity Reaction Status Date / Time alcohol Allergy Rash/Hives Verified 11/18/23 02:48 [From Mastisol Liquid Adhesive] gum mastic Allergy Rash/Hives Verified 11/18/23 02:48 [From Mastisol Liquid Adhesive] methyl salicylate Allergy Rash/Hives Verified 11/18/23 02:48 [From Mastisol Liquid Adhesive] Penicillins Allergy Rash/Hives Verified 11/18/23 02:48 as a child povidone-iodine Allergy Rash/Hives Verified 11/18/23 02:48 [From Betadine] storax Allergy Rash/Hives Verified 11/18/23 02:48 [From Mastisol Liquid Adhesive] Review of Systems ROS Statement: Those systems with pertinent positive or pertinent negative responses have been documented in the HPI. ROS Other: All systems not noted in ROS Statement are negative. Past Medical History Past Medical History: GERD/Reflux Additional Past Medical History / Comment(s): freq diarrhea and intermittent abd pain, pcos-takes metformin History of Any Multi-Drug Resistant Organisms: None Reported Past Surgical History: Adenoidectomy, Bariatric Surgery, Section Additional Past Surgical History / Comment(s): D&C,achilles tendon repair. Sleeve gastrectomy 11-01-23 Past Anesthesia/Blood Transfusion Reactions: No Reported Reaction, Family History of Problems w/ Anesthesia Additional Past Anesthesia/Blood Transfusion Reaction / Comment(s): mom and sister have PONV Past Psychological History: No Psychological Hx Reported Smoking Status: Never smoker Past Alcohol Use History: None Reported Past Drug Use History: None Reported - Past Family History Mother Family Medical History: Cancer Additional Family Medical History / Comment(s): Breast cancer. General Exam Limitations: no limitations General appearance: alert, in no apparent distress Head exam: Present: atraumatic, normocephalic, normal inspection Eye exam: Present: normal appearance, PERRL, EOMI. Absent: scleral icterus, conjunctival injection, periorbital swelling ENT exam: Present: normal exam, mucous membranes moist Neck exam: Present: normal inspection. Absent: tenderness, meningismus, lymphadenopathy Respiratory exam: Present: normal lung sounds bilaterally. Absent: respiratory distress, wheezes, rales, rhonchi, stridor Cardiovascular Exam: Present: regular rate, normal rhythm, normal heart sounds. Absent: systolic murmur, diastolic murmur, rubs, gallop, clicks GI/Abdominal exam: Present: soft, tenderness (Mild right upper quadrant), normal bowel sounds. Absent: distended, guarding, rebound, rigid Extremities exam: Present: normal inspection, full ROM, normal capillary refill. Absent: tenderness, pedal edema, joint swelling, calf tenderness Back exam: Present: normal inspection Neurological exam: Present: alert, oriented X3, CN II-XII intact Psychiatric exam: Present: normal affect, normal mood Skin exam: Present: warm, dry, intact, normal color. Absent: rash Course Vital Signs 11/18/23 11/18/23 02:47 04:34 Temperature 97.9 F 97.8 F Pulse Rate 86 63 Respiratory 18 18 Rate Blood Pressure 133/94 130/82 O2 Sat by Pulse 100 100 Oximetry Medical Decision Making - Medical Decision Making Was pt. sent in by a medical professional or institution (, PA, PROFESSOR OF ENGINEERING, urgent care, hospital, or longterm...) When possible be specific @ -No Did you speak to anyone other than the patient for history (EMS, parent, family, police, friend...)? What history was obtained from this source @ -No Did you review nursing and triage notes (agree or disagree)? Why? @ -I reviewed and agree with nursing and triage notes Were old charts reviewed (outside hosp., previous admission, EMS record, old EKG, old radiological studies, urgent care reports/EKG's, longterm records)? Report findings @ -I reviewed the patient's operative note from October 31 where she had her gastric sleeve performed Differential Diagnosis (chest pain, altered mental status, abdominal pain women, abdominal pain men, vaginal bleeding, weakness, fever, dyspnea, syncope, headache, dizziness, GI bleed, back pain, seizure, CVA, palpatations, mental health, musculoskeletal)? @ -Differential Abdominal Pain Women: Appendicitis, Cholecystitis, diverticulosis, ischemic bowel, pancreatitis, hepatitis, UTI, gastroenteritis, AAA, incarcerated hernia, bowel obstruction, constipation, inflammatory bowel, hepatitis, peptic ulcer disease, splenic infarction, perforated viscus, vulvitis, ovarian torsion, PID, kidney stone, placenta abruption, this is not meant to be an all-inclusive list EKG interpreted by me (3pts min.). @ -Not done X-rays interpreted by me (1pt min.). @ -None done CT interpreted by me (1pt min.). @ -None done U/S interpreted by me (1pt. min.). @ -None done What testing was considered but not performed or refused? (CT, X-rays, U/S, labs)? Why? @ -CT of the abdomen was considered however patient only has minimal pain upon palpation. Ultrasound was considered however not available at this time and patient is also status postcholecystectomy. Laboratory studies within normal li mits and therefore imaging will be held off until patient is able to see her bariatric surgeon What meds were considered but not given or refused? Why? @ -None Did you discuss the management of the patient with other professionals (professionals i.e. Dr., PA, PROFESSOR OF ENGINEERING, lab, RT, psych nurse, social staff worker, assistant store manager operations, teacher, probation officer, keycase assembler)? Give summary @ -No Was smoking cessation discussed for >3mins.? @ -No Was critical care preformed (if so, how long)? @ -No Were there social determinants of health that impacted care today? How? (Homelessness, low income, unemployed, alcoholism, drug addiction, transportation, low edu. Level, literacy, decrease access to med. care, long-term, rehab)? @ -No Was there de-escalation of care discussed even if they declined (Discuss DNR or withdrawal of care, Hospice)? DNR status @ -No What co-morbidities impacted this encounter? (DM, HTN, Smoking, COPD, CAD, Cancer, CVA, ARF, Chemo, Hep., AIDS, mental health diagnosis, sleep apnea, morbid obesity)? @ -Obesity Was patient admitted / discharged? Hospital course, mention meds given and route, prescriptions, significant lab abnormalities, going to OR and other pertinent info. @ -Upon arrival patient was seen and evaluated in room 15. Thorough history and physical exam was performed. IV was established. Laboratory studies are conducted. Patient given Toradol for pain control. Laboratory studies are reviewed and are within normal limits. Did discuss imaging with the patient. Ultrasound not available and patient refuses CT due to radiation risks. Pain is controlled at this time. Urinalysis is concerning for infection. Patient given a dose of Rocephin. She will be discharged home and instructed to take antibiotics to see if this alleviates her symptoms. She will see her bariatric surgeon to determine further testing and return for any new or worsening symptoms. Patient agreeable to plan she was discharged in stable condition Undiagnosed new problem with uncertain prognosis? @ -Yes Drug Therapy requiring intensive monitoring for toxicity (Heparin, Nitro, Insulin, Cardizem)? @ -No Were any procedures done? @ -No Diagnosis/symptom? @ -Acute right upper quadrant abdominal pain, status post gastric sleeve Acute, or Chronic, or Acute on Chronic? @ -Acute Uncomplicated (without systemic symptoms) or Complicated (systemic symptoms)? @ -Complicated Side effects of treatment? @ -No Exacerbation, Progression, or Severe Exacerbation? @ -No Poses a threat to life or bodily function? How? (Chest pain, [place], [place], pneumonia, PE, COPD, DKA, ARF, appy, cholecystitis, CVA, Diverticulitis, Homicidal, Suicidal, threat to staff... and all critical care pts) @ -No - Lab Data Result diagrams: 11/18/23 03:02 11/18/23 03:02 Lab Results 11/18/23 11/18/23 11/18/23 Range/Units 03:02 03:02 03:02 WBC 8.8 (3.8-10.6) k/uL RBC 4.62 (3.80-5.40) m/uL Hgb 14.3 (11.4-16.0) gm/dL Hct 43.5 (34.0-46.0) % MCV 94.2 (80.0-100.0) fL MCH 31.0 (25.0-35.0) pg MCHC 32.9 (31.0-37.0) g/dL RDW 14.3 (11.5-15.5) % Plt Count 315 (150-450) k/uL MPV 8.3 Neutrophils % 49 % Lymphocytes % 38 % Monocytes % 5 % Eosinophils % 6 % Basophils % 1 % Neutrophils # 4.3 (1.3-7.7) k/uL Lymphocytes # 3.3 (1.0-4.8) k/uL Monocytes # 0.4 (0-1.0) k/uL Eosinophils # 0.5 (0-0.7) k/uL Basophils # 0.1 (0-0.2) k/uL Sodium 139 (137-145) mmol/L Potassium 4.0 (3.5-5.1) mmol/L Chloride 104 (98-107) mmol/L Carbon Dioxide 29 (22-30) mmol/L Anion Gap 6 mmol/L BUN 8 (7-17) mg/dL Creatinine 0.59 (0.52-1.04) mg/dL Est GFR (CKD-EPI)AfAm >90 (>60 ml/min/1.73 sqM) Est GFR (CKD-EPI)NonAf >90 (>60 ml/min/1.73 sqM) Glucose 92 (74-99) mg/dL Plasma Lactic Acid Justice 0.8 (0.7-2.0) mmol/L Calcium 9.2 (8.4-10.2) mg/dL Total Bilirubin 0.5 (0.2-1.3) mg/dL AST 25 (14-36) U/L ALT 22 (4-34) U/L Alkaline Phosphatase 74 (38-126) U/L Total Protein 7.2 (6.3-8.2) g/dL Albumin 4.0 (3.5-5.0) g/dL Lipase 232 (23-300) U/L Urine Color Urine Appearance (Clear) Urine pH (5.0-8.0) Ur Specific [place] (1.001-1.035) Urine Protein (Negative) Urine Glucose (UA) (Negative) Urine Ketones (Negative) Urine Blood (Negative) Urine Nitrite (Negative) Urine Bilirubin (Negative) Urine Urobilinogen (<2.0) mg/dL Ur Leukocyte Esterase (Negative) Urine RBC (0-5) /hpf Urine WBC (0-5) /hpf Ur Squamous Epith Cells (0-4) /hpf Amorphous Sediment (None) /hpf Urine Bacteria (None) /hpf Hyaline Casts (0-2) /lpf Granular Casts (0) /lpf Urine Mucus (None) /hpf Urine Yeast (Budding) (None) /hpf Urine HCG, Qual (Not Detectd) 11/18/23 11/18/23 Range/Units 03:02 03:02 WBC (3.8-10.6) k/uL RBC (3.80-5.40) m/uL Hgb (11.4-16.0) gm/dL Hct (34.0-46.0) % MCV (80.0-100.0) fL MCH (25.0-35.0) pg MCHC (31.0-37.0) g/dL RDW (11.5-15.5) % Plt Count (150-450) k/uL MPV Neutrophils % % Lymphocytes % % Monocytes % % Eosinophils % % Basophils % % Neutrophils # (1.3-7.7) k/uL Lymphocytes # (1.0-4.8) k/uL Monocytes # (0-1.0) k/uL Eosinophils # (0-0.7) k/uL Basophils # (0-0.2) k/uL Sodium (137-145) mmol/L Potassium (3.5-5.1) mmol/L Chloride (98-107) mmol/L Carbon Dioxide (22-30) mmol/L Anion Gap mmol/L BUN (7-17) mg/dL Creatinine (0.52-1.04) mg/dL Est GFR (CKD-EPI)AfAm (>60 ml/min/1.73 sqM) Est GFR (CKD-EPI)NonAf (>60 ml/min/1.73 sqM) Glucose (74-99) mg/dL Plasma Lactic Acid Justice (0.7-2.0) mmol/L Calcium (8.4-10.2) mg/dL Total Bilirubin (0.2-1.3) mg/dL AST (14-36) U/L ALT (4-34) U/L Alkaline Phosphatase (38-126) U/L Total Protein (6.3-8.2) g/dL Albumin (3.5-5.0) g/dL Lipase (23-300) U/L Urine Color Yellow Urine Appearance Cloudy H (Clear) Urine pH 5.5 (5.0-8.0) Ur Specific [place] 1.019 (1.001-1.035) Urine Protein Trace H (Negative) Urine Glucose (UA) Negative (Negative) Urine Ketones 2+ H (Negative) Urine Blood Small H (Negative) Urine Nitrite Negative (Negative) Urine Bilirubin Negative (Negative) Urine Urobilinogen <2.0 (<2.0) mg/dL Ur Leukocyte Esterase Small H (Negative) Urine RBC 7 H (0-5) /hpf Urine WBC 23 H (0-5) /hpf Ur Squamous Epith Cells 15 H (0-4) /hpf Amorphous Sediment Rare H (None) /hpf Urine Bacteria Many H (None) /hpf Hyaline Casts 8 H (0-2) /lpf Granular Casts 16 (0) /lpf Urine Mucus Many H (None) /hpf Urine Yeast (Budding) Few H (None) /hpf Urine HCG, Qual Not Detected (Not Detectd) Disposition Clinical Impression: Right flank pain, Pyelonephritis Disposition: HOME SELF-CARE Condition: Stable Instructions (If sedation given, give patient instructions): Kidney Infection (ED) Additional Instructions: Please take the antibiotic as directed and see if it helps your flank pain at all. Use the Tylenol threes if needed but make sure that you are eating before taking it. Call the clinic in the morning and return for any new or worsening symptoms Prescriptions: Fluconazole [Diflucan] 150 mg PO ONCE #2 tab Cephalexin [Keflex] 500 mg PO Q6HR #28 cap Is patient prescribed a controlled substance at d/c from ED?: No Referrals: Lex Elmore MD [Primary Care Provider] - 1-2 days Time of Disposition: 04:22
[2023-11-18 04:59] VITALS: BP 130/82; PULSE 63; TEMP 97.8
== END 2023-11-18 04:34 | disposition home or self-care (01) ==
LOC: EC 02:43
DX: N12 Tubulo-interstitial nephritis, not specified as acute or chronic (principal); E66.9 Obesity, unspecified; Z98.84 Bariatric surgery status; Z88.0 Allergy status to penicillin; Z88.6 Allergy status to analgesic agent; Z88.7 Allergy status to serum and vaccine; Z91.048 Other nonmedicinal substance allergy status; Z91.041 Radiographic dye allergy status; Z68.39 Body mass index [BMI] 39.0-39.9, adult
CPT/HCPCS: 36415; 80053; 83605; 83690; 85025; 81001; 81025; 99284; 96374; 96375; 96361; J0696; J1885

== ENCOUNTER → 2023-11-19 | Outpatient (CLI) | payer OTHER ==
--- NOTE | 2023-11-19 11:15 | CT ---
EXAMINATION TYPE: CT abdomen pelvis w con DATE OF EXAM: 11/19/2023 COMPARISON: None HISTORY: right sided abd pain CT DLP: 2674.6 mGycm CONTRAST: CT scan of the abdomen and pelvis is performed with Oral Contrast and with IV Contrast, patient injec jody with 100 mL of Isovue 370. FINDINGS: LUNG BASES-: No visible nodule. No infiltrate. LIVER/GB: Cholecystectomy clips in place. No space occupying hepatic lesion. Biliary tree is of piyush l caliber. PANCREAS: No inflammation. No distinct mass. SPLEEN: No splenic enlargement. No lesion seen. ADRENALS: No nodule. No thickening. KIDNEYS/BLADDER: No hydronephrosis. No nephrolithiasis. No distinct renal mass. Urinary bladder g rossly unremarkable. BOWEL: Normal appendix. Normal bowel caliber. No inflammation. GENITAL ORGANS: No gross abnormality. LYMPH NODES: No greater than 1cm abdominal or pelvic lymph nodes are appreciated. AORTA: No significant abnormality. OSSEOUS STRUCTURES: No significant abnormality is seen. OTHER: Linear subcutaneous stranding right mid abdomen which appears to reflect a laparoscopic tract. No abnormal collections are seen. IMPRESSION: 1. Linear subcutaneous stranding right mid abdomen which appears to reflect a laparoscopic tract. No abnormal collections are seen.
== END | disposition home or self-care (01) ==
LOC: RADCTMAIN 10:40
PROVIDERS: ATTEND Surgery
DX: R10.11 Right upper quadrant pain (principal)
CPT/HCPCS: 74177; Q9967

== ENCOUNTER 2023-11-27 00:32 | Emergency (ER) | payer OTHER ==
[2023-11-27 01:16] VITALS: TEMP 97.5
[2023-11-27] MEDS: MAG HYDROX/AL HYDROX/SIMETH 30 ML CUP PO STA (01:44)
--- NOTE | 2023-11-27 02:01 | ED ---
Abdominal Pain HPI - General Chief Complaint: Abdominal Pain Stated Complaint: Pain along ribcage and back Time Seen by Provider: 11/27/23 00:44 Source: patient Mode of arrival: ambulatory Limitations: no limitations - History of Present Illness Initial Comments: 33-year-old female presented to the ED with complaints of abdominal pain. Patient reports gastric sleeve performed by Dr. Norwood on 10/31. Since then has had intermittent epigastric abdominal pain. No nausea or vomiting. No change in bowel or bladder movements. Today reports the same pain. Reports that it was not going away at home prompting presentation to the ED for further evaluation. However at this time, patient reports pain is completely resolved and currently has no symptoms. Denies chest pain shortness of breath. - Related Data Home Medications Medication Instructions Recorded Confirmed Medroxyprogesterone Acetate 5 mg PO DIRECTED 06/15/23 11/11/23 [Provera] Multivitamins, Thera [Multivitamin 1 tab PO DAILY 06/16/23 11/11/23 (formulary)] Omeprazole 40 mg PO QAM 10/27/23 11/11/23 Vit No.179/Iron/Folic 1 each PO DAILY 10/27/23 11/11/23 [ Tablet] Previous Rx's Medication Instructions Recorded Ondansetron Odt [Zofran Odt] 4 mg PO Q8HR PRN #9 tab 11/03/23 Simethicone 40 mg/0.6 ml Drops 40 mg PO PCHS PRN #30 ml 11/03/23 [Mylicon Drops] bisacodyL [Dulcolax] 5 mg PO DAILY PRN #10 tab 11/03/23 traMADol HCl [Ultram] 50 mg PO Q6HR PRN 2 Days #5 tab 11/03/23 Cephalexin [Keflex] 500 mg PO Q6HR #28 cap 11/18/23 Fluconazole [Diflucan] 150 mg PO ONCE #2 tab 11/18/23 Allergies Allergy/AdvReac Type Severity Reaction Status Date / Time alcohol Allergy Rash/Hives Verified 11/27/23 00:43 [From Mastisol Liquid Adhesive] gum mastic Allergy Rash/Hives Verified 11/27/23 00:43 [From Mastisol Liquid Adhesive] methyl salicylate Allergy Rash/Hives Verified 11/27/23 00:43 [From Mastisol Liquid Adhesive] Penicillins Allergy Rash/Hives Verified 11/27/23 00:43 as a child povidone-iodine Allergy Rash/Hives Verified 11/27/23 00:43 [From Betadine] storax Allergy Rash/Hives Verified 11/27/23 00:43 [From Mastisol Liquid Adhesive] Review of Systems ROS Statement: Those systems with pertinent positive or pertinent negative responses have been documented in the HPI. ROS Other: All systems not noted in ROS Statement are negative. Past Medical History Past Medical History: GERD/Reflux Additional Past Medical History / Comment(s): freq diarrhea and intermittent abd pain, pcos-takes metformin History of Any Multi-Drug Resistant Organisms: None Reported Past Surgical History: Adenoidectomy, Bariatric Surgery, Section Additional Past Surgical History / Comment(s): D&C,achilles tendon repair. Sleeve gastrectomy 11-01-23 Past Anesthesia/Blood Transfusion Reactions: No Reported Reaction, Family History of Problems w/ Anesthesia Additional Past Anesthesia/Blood Transfusion Reaction / Comment(s): mom and sister have PONV Past Psychological History: No Psychological Hx Reported Smoking Status: Never smoker Past Alcohol Use History: None Reported Past Drug Use History: None Reported - Past Family History Mother Family Medical History: Cancer Additional Family Medical History / Comment(s): Breast cancer. General Exam Limitations: no limitations General appearance: alert, in no apparent distress Eye exam: Present: normal appearance ENT exam: Present: normal exam Neck exam: Present: normal inspection Respiratory exam: Present: normal lung sounds bilaterally Cardiovascular Exam: Present: regular rate GI/Abdominal exam: Present: soft. Absent: distended, tenderness, guarding, rebound, rigid, normal bowel sounds Back exam: Present: normal inspection Neurological exam: Present: alert, oriented X3 Skin exam: Present: warm, dry Course Vital Signs 11/27/23 00:39 Temperature 97.5 F L Pulse Rate 56 L Respiratory 18 Rate Blood Pressure 111/78 O2 Sat by Pulse 100 Oximetry Medical Decision Making - Medical Decision Making Was pt. sent in by a medical professional or institution (, PA, MIDDLE SCHOOL BASEBALL COACH, urgent care, hospital, or residential...) When possible be specific @ -No Did you speak to anyone other than the patient for history (EMS, parent, family, police, friend...)? What history was obtained from this source @ -No Did you review nursing and triage notes (agree or disagree)? Why? @ -I reviewed and agree with nursing and triage notes Were old charts reviewed (outside hosp., previous admission, EMS record, old EKG, old radiological studies, urgent care reports/EKG's, residential records)? Report findings @ -No old charts were reviewed Differential Diagnosis (chest pain, altered mental status, abdominal pain women, abdominal pain men, vaginal bleeding, weakness, fever, dyspnea, syncope, headache, dizziness, GI bleed, back pain, seizure, CVA, palpatations, mental health, musculoskeletal)? @ -Differential Abdominal Pain Women: Appendicitis, Cholecystitis, diverticulosis, ischemic bowel, pancreatitis, hepatitis, UTI, gastroenteritis, AAA, incarcerated hernia, bowel obstruction, constipation, inflammatory bowel, hepatitis, peptic ulcer disease, splenic infarction, perforated viscus, vulvitis, ovarian torsion, PID, kidney stone, placenta abruption, this is not meant to be an all-inclusive list EKG interpreted by me (3pts min.). @ -None X-rays interpreted by me (1pt min.). @ -None done CT interpreted by me (1pt min.). @ -None done U/S interpreted by me (1pt. min.). @ -None done What testing was considered but not performed or refused? (CT, X-rays, U/S, labs)? Why? @ -Labs and imaging were considered however at this time patient reports she is completely asymptomatic and would like to go home. What meds were considered but not given or refused? Why? @ -None Did you discuss the management of the patient with other professionals (professionals i.e. , PA, MIDDLE SCHOOL BASEBALL COACH, lab, RT, psych nurse, social work supervisor, chronometer tester, teacher, chief science officer, case management assistant)? Give summary @ -No Was smoking cessation discussed for >3mins.? @ -No Was critical care preformed (if so, how long)? @ -No Were there social determinants of health that impacted care today? How? (Homelessness, low income, unemployed, alcoholism, drug addiction, transportation, low edu. Level, literacy, decrease access to med. care, intermediate, rehab)? @ -No Was there de-escalation of care discussed even if they declined (Discuss DNR or withdrawal of care, Hospice)? DNR status @ -No What co-morbidities impacted this encounter? (DM, HTN, Smoking, COPD, CAD, Cancer, CVA, ARF, Chemo, Hep., AIDS, mental health diagnosis, sleep apnea, morbid obesity)? @ -None Was patient admitted / discharged? Hospital course, mention meds given and route, prescriptions, significant lab abnormalities, going to OR and other pertinent info. @ -Discharge 33-year-old female presenting to the ED with complaints of abdominal pain. Reports she had a gastric sleeve done last month and since then has had recurrent epigastric abdominal pain. Tonight pain ongoing for the past hour and a half which she could not get to go away which prompted presentation to the ED for further evaluation however upon evaluation pain is completely resolved. At this time patient reports she is asymptomatic would like to go home. Labs and imaging studies were offered however patient reports that she would just like to go home at this time. Discharged home in stable condition. Advise close follow-up with her PCP. Patient notes she has follow-up with her surgeon in 2 days. Advised following as scheduled. Discussed return precautions with patient who verbalized agreement. Undiagnosed new problem with uncertain prognosis? @ -No Drug Therapy requiring intensive monitoring for toxicity (Heparin, Nitro, Insulin, Cardizem)? @ -No Were any procedures done? @ -No Diagnosis/symptom? @ -Abdominal pain Acute, or Chronic, or Acute on Chronic? @ -Acute Uncomplicated (without systemic symptoms) or Complicated (systemic symptoms)? @ -Uncomplicated Side effects of treatment? @ -No Exacerbation, Progression, or Severe Exacerbation? @ -No Poses a threat to life or bodily function? How? (Chest pain, [place], [place], pneumonia, PE, COPD, DKA, ARF, appy, cholecystitis, CVA, Diverticulitis, Homicidal, Suicidal, threat to staff... and all critical care pts) @ -No Disposition Clinical Impression: Abdominal pain Disposition: HOME SELF-CARE Condition: Good Instructions (If sedation given, give patient instructions): Abdominal Pain (ED) Additional Instructions: Please return to the Emergency Department if symptoms worsen or any other concerns. Please follow-up with your PCP and your surgeon as scheduled. Is patient prescribed a controlled substance at d/c from ED?: No Referrals: Lex Elmore MD [Primary Care Provider] - 1-2 days Time of Disposition: 02:33
[2023-11-27 03:05] VITALS: BP 129/76; PULSE 90; RESP 17
== END 2023-11-27 02:37 | disposition home or self-care (01) ==
LOC: EC 00:32
DX: R10.13 Epigastric pain (principal); Z88.0 Allergy status to penicillin; Z88.8 Allergy status to other drugs, medicaments and biological substances; Z91.041 Radiographic dye allergy status
CPT/HCPCS: 99283

== ENCOUNTER → 2023-12-28 | Outpatient (CLI) | payer OTHER ==
[2023-12-28 12:59] VITALS: BP 133/84; PULSE 76; TEMP 98.1; BMI 37.0
--- NOTE | 2023-12-28 14:44 | P.BASOAP ---
Subjective Progress Note Date: 12/28/23 Principal diagnosis: Morbid obesity Patient returns for recheck. Doing well since she was last seen. Had an episode of intermittent diarrhea for about a 1 week stretch. Was having some vague mid abdominal pain at the time. That has resolved. Thinks she may have had the flu. She has lost 16 pounds since her last visit. She has not had her 1 month labs performed. Still having some mild reflux symptoms despite omeprazole and is taking Tums at night. This seems to be controlling things well. No pain currently. Vital stable. Objective - Vital Signs Vital signs: Vital Signs Temp 98.1 F 12/28/23 12:56 Pulse 76 12/28/23 12:56 Resp BP 133/84 12/28/23 12:56 Pulse Ox FiO2 Intake & Output 12/27/23 12/28/23 12/28/23 18:59 06:59 18:59 Weight 110.677 kg - Exam Abdomen: Soft, nontender, nondistended Assessment/Plan (1) Morbid obesity with BMI of 40.0-44.9, adult Narrative/Plan: 33-year-old female doing well after previous sleeve gastrectomy. Continue dietary and exercise regimen. Continue omeprazole with Tums as needed. Check 1 month labs. Follow-up 4 to 6 weeks. Plan: Date: 12/28/23 Initial Weight: Initial BMI: Current Weight: 110.677 kg Current BMI: 37.0 Type of Surgery: Total Volume in Band: Previous Volume: Volume Removed: Volume Added: Band Size:
[2023-12-28 18:24] LABS: HGB 13.4 g/dL (12.0-15.0); RBC 4.38 X 10*6/uL (4.10-5.20); WBC 8.71 X 10*3/uL (4.50-10.00)
[2023-12-28 18:25] LABS: HCT 42.8 % (37.2-46.3); MCH 30.6 pg (27.0-32.0); MCHC 31.3 g/dL (32.0-37.0); MCV 97.7 FL (80.0-97.0); NRBC Per 100 WBC 0 X 10*3/uL (0.00-0.01); Platelet Count 272 X 10*3/uL (140-440); RDW 13.8 % (11.5-14.5)
[2023-12-28 21:22] LABS: ALT 15 U/L (8-44); AST 20 U/L (13-35); Albumin 4.3 g/dL (3.8-4.9); Albumin/Globulin Ratio 1.54 Ratio (1.60-3.17); Alkaline Phosphatase 73 U/L (41-126); BUN/Creat Ratio 9.57 Ratio (12.00-20.00); Blood Urea Nitrogen 6.7 mg/dL (9.0-27.0); Calcium 9.3 mg/dL (8.7-10.3); Carbon Dioxide 24.9 mmol/L (21.6-31.8); Chloride 104 mmol/L (96-109); Globulin 2.8 g/dL (1.6-3.3); Glucose 85 mg/dL (70-110); Iron 50 UG/DL (50-170); Potassium 4.5 mmol/L (3.5-5.5); Sodium 141 mmol/L (135-145); Total Bilirubin 0.3 mg/dL (0.3-1.2); Total Protein 7.1 g/dL (6.2-8.2)
== END ==
LOC: BARWHC3 12:38
PROVIDERS: ATTEND Surgery
DX: E66.01 Morbid (severe) obesity due to excess calories (principal); K90.89 Other intestinal malabsorption; E55.9 Vitamin D deficiency, unspecified; R19.7 Diarrhea, unspecified; R10.9 Unspecified abdominal pain; K21.9 Gastro-esophageal reflux disease without esophagitis; Z68.41 Body mass index [BMI] 40.0-44.9, adult; Z71.3 Dietary counseling and surveillance; Z98.84 Bariatric surgery status; Z90.3 Acquired absence of stomach [part of]; Z88.8 Allergy status to other drugs, medicaments and biological substances; Z88.0 Allergy status to penicillin; Z91.048 Other nonmedicinal substance allergy status; Z87.891 Personal history of nicotine dependence
CPT/HCPCS: 84425; 80053; 82607; 82746; 83540; 85027; 82306; 97803; G0463; 99211

== ENCOUNTER → 2024-03-28 | Outpatient (CLI) | payer OTHER ==
[2024-03-28 16:19] VITALS: RESP 16; TEMP 97.8; BMI 33.3
[2024-03-28 16:20] VITALS: BP 136/93
--- NOTE | 2024-03-28 21:24 | P.BASOAP ---
Subjective Progress Note Date: 03/28/24 Principal diagnosis: Morbid obesity Patient returns for recheck. Underwent sleeve and October. Still taking omeprazole daily. Taking Tums infrequently now. She is lost 11 pounds since her last visit in February. Overall feels well. Objective - Vital Signs Vital signs: Vital Signs Temp 97.8 F 03/28/24 16:12 Pulse Resp 16 03/28/24 16:12 BP 136/93 03/28/24 16:12 Pulse Ox FiO2 Intake & Output 03/28/24 03/28/24 03/29/24 06:59 18:59 06:59 Weight 99.337 kg - Exam Abdomen: Soft, nontender, nondistended Assessment/Plan (1) Morbid obesity with BMI of 40.0-44.9, adult Narrative/Plan: Patient doing well today. Continue daily antiacids. Continue dietary and exercise regimen. Follow-up 4 to 6 weeks. Check lab work at that time. Plan: Date: 03/28/24 Initial Weight: 131.995 kg Initial BMI: 44.2 Current Weight: 99.337 kg Current BMI: 33.3 Type of Surgery: Vertical Sleeve Gastrectomy Total Volume in Band: Previous Volume: Volume Removed: Volume Added: Band Size:
== END ==
LOC: BARWHC3 16:04
PROVIDERS: ATTEND Surgery
CPT/HCPCS: 99211

== ENCOUNTER → 2024-05-16 | Outpatient (CLI) | payer OTHER ==
[2024-05-16 13:29] VITALS: BP 134/79; PULSE 81; RESP 16; TEMP 97.3; BMI 31.0
--- NOTE | 2024-05-16 14:59 | P.BASOAP ---
Subjective Progress Note Date: 05/16/24 Principal diagnosis: Morbid obesity Patient returns for reevaluation. Last seen 03/28. Underwent sleeve gastrectomy in October. Takes omeprazole daily. She is due for lab work. Still on omeprazole. Complains of fatigue. She has lost 15 pounds since her last visit. Objective - Vital Signs Vital signs: Vital Signs Temp 97.3 F L 05/16/24 13:27 Pulse 81 05/16/24 13:27 Resp 16 05/16/24 13:27 BP 134/79 05/16/24 13:27 Pulse Ox FiO2 Intake & Output 05/15/24 05/16/24 05/16/24 18:59 06:59 18:59 Weight 92.533 kg - Exam Abdomen: Soft, nontender, nondistended Assessment/Plan (1) Morbid obesity with BMI of 40.0-44.9, adult Narrative/Plan: Patient doing well at this time. Check 6-month labs. Continue omeprazole. Follow-up early July. Plan: Date: 05/16/24 Initial Weight: 131.995 kg Initial BMI: 44.2 Current Weight: 92.533 kg Current BMI: 31.0 Type of Surgery: Vertical Sleeve Gastrectomy Total Volume in Band: Previous Volume: Volume Removed: Volume Added: Band Size:
== END ==
LOC: BARWHC3 13:12
PROVIDERS: ATTEND Surgery
DX: E66.01 Morbid (severe) obesity due to excess calories (principal); R53.83 Other fatigue; Z98.84 Bariatric surgery status; Z90.3 Acquired absence of stomach [part of]; Z68.31 Body mass index [BMI] 31.0-31.9, adult; Z88.8 Allergy status to other drugs, medicaments and biological substances; Z88.0 Allergy status to penicillin; Z87.891 Personal history of nicotine dependence
CPT/HCPCS: 99211

== ENCOUNTER → 2024-05-16 | Outpatient (CLI) | payer OTHER ==
[2024-05-16 18:43] LABS: HCT 42.4 % (37.2-46.3); HGB 13.5 g/dL (12.0-15.0); MCH 31.9 pg (27.0-32.0); MCHC 31.8 g/dL (32.0-37.0); MCV 100.2 FL (80.0-97.0); Mean Platelet Volume 10.6 FL (9.5-12.2); NRBC Per 100 WBC 0 X 10*3/uL (0.00-0.01); Platelet Count 307 X 10*3/uL (140-440); RBC 4.23 X 10*6/uL (4.10-5.20); RDW 12.3 % (11.5-14.5); WBC 8.39 X 10*3/uL (4.50-10.00)
[2024-05-16 19:15] LABS: ALT 10 U/L (8-44); AST 16 U/L (13-35); Albumin 4.3 g/dL (3.8-4.9); Albumin/Globulin Ratio 1.65 Ratio (1.60-3.17); Alkaline Phosphatase 71 U/L (41-126); BUN/Creat Ratio 10.29 Ratio (12.00-20.00); Blood Urea Nitrogen 7.2 mg/dL (9.0-27.0); Calcium 9.1 mg/dL (8.7-10.3); Carbon Dioxide 27.2 mmol/L (21.6-31.8); Chloride 102 mmol/L (96-109); Globulin 2.6 g/dL (1.6-3.3); Glucose 79 mg/dL (70-110); Iron 69 UG/DL (50-170); Potassium 4.5 mmol/L (3.5-5.5); Sodium 141 mmol/L (135-145); Total Bilirubin 0.2 mg/dL (0.3-1.2); Total Protein 6.9 g/dL (6.2-8.2)
== END | disposition home or self-care (01) ==
LOC: LABWHC1 14:14
PROVIDERS: ATTEND Surgery
DX: E89.1 Postprocedural hypoinsulinemia (principal); K90.89 Other intestinal malabsorption; E55.9 Vitamin D deficiency, unspecified
CPT/HCPCS: 36415; 80053; 82306; 82607; 82746; 83036; 83540; 84425; 85027

== ENCOUNTER → 2024-08-29 | Outpatient (CLI) | payer OTHER ==
[2024-08-29 15:03] VITALS: BP 125/88; PULSE 81; RESP 16; TEMP 98.2; BMI 28.1
--- NOTE | 2024-08-29 15:54 | P.BASOAP ---
Subjective Progress Note Date: 08/29/24 Principal diagnosis: Morbid obesity Patient returns for recheck. Doing well since last visit. Some constipation. No rectal bleeding. Remains on omeprazole. Excellent ongoing weight loss. No heartburn while on antiacids. Objective - Vital Signs Vital signs: Vital Signs Temp 98.2 F 08/29/24 15:01 Pulse 81 08/29/24 15:01 Resp 16 08/29/24 15:01 BP 125/88 08/29/24 15:01 Pulse Ox FiO2 Intake & Output 08/28/24 08/29/24 08/29/24 18:59 06:59 18:59 Weight 83.915 kg - Exam Abdomen: Soft, nontender, nondistended Assessment/Plan (1) Morbid obesity with BMI of 40.0-44.9, adult Narrative/Plan: 34-year-old female doing well after previous sleeve gastrectomy. Continue exercise and dietary regimen. Continue antiacids for now. Recheck in October. Check 1 year labs at that time. Plan: Date: 08/29/24 Initial Weight: 131.995 kg Initial BMI: 44.2 Current Weight: 83.915 kg Current BMI: 28.1 Type of Surgery: Vertical Sleeve Gastrectomy Total Volume in Band: Previous Volume: Volume Removed: Volume Added: Band Size:
== END ==
LOC: BARWHC3 14:48
PROVIDERS: ATTEND Surgery
DX: E66.01 Morbid (severe) obesity due to excess calories (principal); Z68.41 Body mass index [BMI] 40.0-44.9, adult; Z87.891 Personal history of nicotine dependence; Z88.9 Allergy status to unspecified drugs, medicaments and biological substances; Z88.0 Allergy status to penicillin; Z88.8 Allergy status to other drugs, medicaments and biological substances; Z88.6 Allergy status to analgesic agent; Z91.041 Radiographic dye allergy status
CPT/HCPCS: 99211

== ENCOUNTER → 2024-10-10 | Outpatient (CLI) | payer OTHER ==
[2024-10-10 14:54] VITALS: BP 122/81; PULSE 74; TEMP 97.9; BMI 27.0
--- NOTE | 2024-10-10 15:19 | P.BASOAP ---
Subjective Progress Note Date: 10/10/24 Principal diagnosis: Morbid obesity Patient returns for recheck. Last seen 6 weeks ago. Doing well. Excellent weight loss. BMI down to 27.1 now. Still feels constipated at times. Not taking anything daily. No heartburn but does take omeprazole daily still. She has not tried stopping it. Objective - Vital Signs Vital signs: Vital Signs Temp 97.9 F 10/10/24 14:52 Pulse 74 10/10/24 14:52 Resp BP 122/81 10/10/24 14:52 Pulse Ox FiO2 Intake & Output 10/09/24 10/10/24 10/10/24 18:59 06:59 18:59 Weight 80.739 kg - Exam Abdomen: Soft, nontender, nondistended Assessment/Plan (1) Morbid obesity with BMI of 40.0-44.9, adult Narrative/Plan: Patient doing well at this time. Continue dietary and exercise regimen. Begin MiraLAX daily. Discussed options of colonoscopy. She would like to avoid that at this time. Tried decreasing omeprazole to every other day. Check annual lab work. Recheck 6 months. Plan: Date: 10/10/24 Initial Weight: 131.995 kg Initial BMI: 44.2 Current Weight: 80.739 kg Current BMI: 27.0 Type of Surgery: Total Volume in Band: Previous Volume: Volume Removed: Volume Added: Band Size:
[2024-10-10 18:13] LABS: HCT 39.3 % (37.2-46.3); HGB 12.5 g/dL (12.0-15.0); MCH 31.8 pg (27.0-32.0); MCHC 31.8 g/dL (32.0-37.0); Mean Platelet Volume 10.4 FL (9.5-12.2); NRBC Per 100 WBC 0 X 10*3/uL (0.00-0.01); Platelet Count 276 X 10*3/uL (140-440); RBC 3.93 X 10*6/uL (4.10-5.20); RDW 11.7 % (11.5-14.5)
[2024-10-10 18:39] LABS: % Iron Saturation 26.49 (12.00-45.00); ALT 11 U/L (8-44); AST 14 U/L (13-35); Albumin 4.1 g/dL (3.8-4.9); Albumin/Globulin Ratio 1.71 Ratio (1.60-3.17); Alkaline Phosphatase 53 U/L (41-126); BUN/Creat Ratio 9.71 Ratio (12.00-20.00); Blood Urea Nitrogen 6.8 mg/dL (9.0-27.0); Calcium 8.9 mg/dL (8.7-10.3); Carbon Dioxide 27.9 mmol/L (21.6-31.8); Chloride 104 mmol/L (96-109); Ferritin 67.2 ng/mL (10.0-291.0); Globulin 2.4 g/dL (1.6-3.3); Glucose 85 mg/dL (70-110); Iron 80 UG/DL (50-170); Potassium 4.2 mmol/L (3.5-5.5); Sodium 141 mmol/L (135-145); Total Bilirubin 0.3 mg/dL (0.3-1.2); Total Iron Binding Capacity 302 UG/DL (228-460); Total Protein 6.5 g/dL (6.2-8.2)
== END ==
LOC: BARWHC3 14:41
PROVIDERS: ATTEND Surgery
DX: E66.01 Morbid (severe) obesity due to excess calories (principal); F17.200 Nicotine dependence, unspecified, uncomplicated; Z68.41 Body mass index [BMI] 40.0-44.9, adult; Z88.0 Allergy status to penicillin; Z91.048 Other nonmedicinal substance allergy status; Z88.8 Allergy status to other drugs, medicaments and biological substances; Z88.6 Allergy status to analgesic agent
CPT/HCPCS: 84425; 80053; 82607; 82728; 82746; 83540; 83550; 85027; 82306; G0463; 99211

== ENCOUNTER → 2024-12-18 | Outpatient (CLI) | payer OTHER ==
--- NOTE | 2024-12-18 14:12 | US ---
EXAMINATION TYPE: US renals and bladder DATE OF EXAM: 12/18/2024 COMPARISON: NONE CLINICAL INDICATION: Female, 34 years old with history of R10.9 FLANK PAIN; Pain TECHNIQUE: Grayscale imaging of the bilateral kidneys and urinary bladder: FINDINGS: EXAM MEASUREMENTS: Right Kidney: 10.5 x 4.0 x 5.9 cm Left Kidney: 10.3 x 5.1 x 4.4 cm Right Kidney: No hydronephrosis or masses seen Left Kidney: No hydronephrosis or masses seen Bladder: Not fully distended. There is no evidence for hydronephrosis at this point in time. No nephrolithiasis is seen. No jeremiah s are identified. IMPRESSION: No acute renal ultrasound abnormality. [facility], , 12/18/2024 2:10 PM
== END | disposition home or self-care (01) ==
LOC: RADUSWWP 12:34
PROVIDERS: ATTEND Family Medicine
DX: R10.9 Unspecified abdominal pain (principal)
CPT/HCPCS: 76770

== ENCOUNTER → 2025-01-08 | Outpatient (CLI) | payer OTHER ==
--- NOTE | 2025-01-08 07:54 | US ---
EXAMINATION TYPE: US abdomen complete DATE OF EXAM: 01/08/2025 COMPARISON: Renal ultrasound 12/18/2024, CT abdomen and pelvis 11/19/2023, abdominal ultrasound 02/29/20 CLINICAL INDICATION: Female, 34 years old with history of R10.11 RUQ PAIN R10.31 RLQ PAIN; right side d pain x 1 month, cholecystectomy TECHNIQUE: Grayscale and color Doppler imaging of the abdomen was performed. FINDINGS: EXAM MEASUREMENTS: Liver Length: 17.6 cm Gallbladder Wall: Surgically absent cm CBD: 0.4 cm, color Doppler imaging was utilized to isolate the common bile duct for measurement. 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 Slightly diffusely hyperechoic appearance of the liver with slight difficulty to penetrate. No focal lesion identified. No surface nodularity. Th e gallbladder is surgically absent. No suspicious fluid collection within the gallbladder fossa. The visualized portion common bile duct is within normal limits. Spleen is unremarkable. Both kidneys dem onstrate no hydronephrosis, shadowing calculus or solid mass. The visualized portions of the upper IV C and abdominal aorta are within normal limits. IMPRESSION: 1. No ultrasound evidence for acute process. 2. Post cholecystectomy changes. 3. Mild hepatic steatosis. [facility], , 01/08/2025 7:52 AM
== END | disposition home or self-care (01) ==
LOC: RADUSWWP 07:17
PROVIDERS: ATTEND Family Medicine
DX: K76.0 Fatty (change of) liver, not elsewhere classified (principal); Z90.49 Acquired absence of other specified parts of digestive tract
CPT/HCPCS: 76700